=== PATIENT | female | born 1965 | race Caucasian/White ===

== ENCOUNTER 2019-12-27 15:54 | Outpatient (CLI) | payer OTHER, SELFPAY ==
--- NOTE | ~2019-12-27 | XR_ITS ---
EXAMINATION: XR chest 2V EXAM DATE: 12/27/2019 16:20 INDICATION: Cough and shortness of breath. TECHNIQUE: Frontal and lateral projections of the chest obtained and reviewed. There is no prior darien dy for comparison. FINDINGS: There are no acute fractures or dislocations identified. There is no subcutaneous gas. Th e soft tissue is unremarkable. There are no radiopaque foreign bodies. IMPRESSION: No acute osseous findings. Reviewed, dictated and finalized at location A. IMPRESSION: No acute osseous findings.
== END 2019-12-27 15:55 | disposition home or self-care (01) ==
LOC: ANHIMG 15:57
PROVIDERS: Visit Provider Physician Assistant
DX: R05 Cough (principal); R06.02 Shortness of breath
CPT/HCPCS: 71046

== ENCOUNTER → 2020-07-06 17:52 | Outpatient (CLI) | payer OTHER, SELFPAY ==
--- NOTE | ~2020-07-06 | MM_ITS ---
EXAMINATION: MM screening [facility] BI w kristy HISTORY: Screening mammogram TECHNIQUE: Craniocaudal and mediolateral oblique 3-D tomosynthesis images were obtained and synthetic 2-D images were generated. CAD analysis was submitted and interpreted. COMPARISON: 03/12/2019, 12/19/2017, 11/08/2016 BREAST PARENCHYMAL COMPOSITION: The breasts are extremely dense, which lowers the sensitivity of mamm ography. FINDINGS: There is no evidence of suspicious mass, calcification, or architectural distortion to sugg est malignancy in either breast. There has been no suspicious interval change. IMPRESSION: 1. No mammographic evidence of malignancy. 2. Recommend routine screening mammography in one year. BI-RADS Category 1: Negative Reviewed, dictated and finalized at location A. 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
== END ==
PROVIDERS: PCP Family Medicine; Visit Provider Nurse Practitioner Obstetrics & Gynecology
DX: Z12.31 Encounter for screening mammogram for malignant neoplasm of breast (principal)
CPT/HCPCS: 77063; 77067

== ENCOUNTER → 2020-11-13 14:59 | Outpatient (CLI) | payer OTHER, SELFPAY ==
--- NOTE | ~2020-11-13 | XR_ITS ---
EXAMINATION: XR lumbar spine 2-3V DATE: 11/13/2020 15:19 INDICATION: Sciatica, unspecified side. Chronic low back pain. TECHNIQUE: 3 views of lumbar spine were obtained. COMPARISON: None. FINDINGS: There is 4 degrees dextrocurvature of lumbar spine. Vertebral body heights are normal. Ther e is mildly decreased disc height at L4-L5 and moderately decreased disc height at L5-S1. There is mu ltilevel mild facet joint osteoarthritis. IMPRESSION: 1. Moderate lower lumbar spondylosis. Reviewed, dictated and finalized at location A.
--- NOTE | ~2020-11-13 | XR_ITS ---
EXAMINATION: XR_CERV2-3V_CR DATE: 11/13/2020 15:19 INDICATION: Neck pain. Bilateral hand numbness. TECHNIQUE: 5 views of cervical spine were obtained. COMPARISON: None. FINDINGS: There is 8 degrees levocurvature of cervicothoracic spine. Vertebral body heights and inter vertebral disc heights are normal. At C7-T1, there is severe facet joint osteoarthritis. No central c anal stenosis or prevertebral soft tissue swelling. IMPRESSION: 1. Mild cervical spondylosis. Reviewed, dictated and finalized at location A.
== END ==
PROVIDERS: PCP Family Medicine; Visit Provider Family Medicine
DX: M54.12 Radiculopathy, cervical region (principal); M54.30 Sciatica, unspecified side; M47.816 Spondylosis without myelopathy or radiculopathy, lumbar region; M47.812 Spondylosis without myelopathy or radiculopathy, cervical region
CPT/HCPCS: 72040; 72100

== ENCOUNTER → 2021-07-14 08:02 | Outpatient (CLI) | payer OTHER, SELFPAY ==
--- NOTE | ~2021-07-14 | MM_ITS ---
EXAMINATION: MM screening [facility] BI w kristy HISTORY: Screening mammogram TECHNIQUE: Craniocaudal and mediolateral oblique 3-D tomosynthesis images were obtained and synthetic 2-D images were generated. Rotated lateral CC views of both breasts. CAD analysis was submitted and interpreted. COMPARISON: 07/06/2020, 03/12/2019, 12/2017 bilateral screening mammogram examinations BREAST PARENCHYMAL COMPOSITION: The breasts are extremely dense, which lowers the sensitivity of mamm ography. FINDINGS: There is a biopsy marker on the left; history of prior benign left breast biopsy in 2011. T here is no evidence of suspicious mass, calcification, or architectural distortion to suggest maligna ncy in either breast. There has been no suspicious interval change. IMPRESSION: 1. No mammographic evidence of malignancy. 2. Recommend routine screening mammography in one year. BI-RADS Category 1: Negative Reviewed, dictated and finalized at location A. 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
== END ==
PROVIDERS: Visit Provider Nurse Practitioner Obstetrics & Gynecology
DX: Z12.31 Encounter for screening mammogram for malignant neoplasm of breast (principal)
CPT/HCPCS: 77063; 77067

== ENCOUNTER 2021-08-07 08:32 | Emergency (ER) | payer OTHER, SELFPAY ==
[2021-08-07 08:38] VITALS: BP 141/92; PULSE 72; RESP 14; TEMP 36.2; O2SAT 100
--- NOTE | 2021-08-07 09:05 | ED.URI ---
HPI - URI/Sore Throat General Chief Complaint: Upper Respiratory Infection Stated Complaint: headache congestion Time Seen by Provider: 08/07/21 09:05 Source: patient, RN notes reviewed and old records reviewed Mode of arrival: ambulatory Limitations: no limitations History of Present Illness HPI Narrative: 55-year-old female presents to the [facility] with complaints of a headache, sore throat and nasal congestion 10 days. States every year around this time she gets bronchitis/sinusitis. Reports trying to treat it with Claritin-D and ibuprofen with no relief. Reports green discharge nasally. Cough worse in the morning and at night. Denies chest pain or abdominal pain. Denies fevers. No nausea vomiting or diarrhea. Related Data Home Medications Medication Instructions Recorded Confirmed thyroid (pork) [[place] Thyroid] 60 mg PO QAM 08/07/21 08/07/21 Allergies Allergy/AdvReac Type Severity Reaction Status Date / Time azithromycin Allergy Intermediate Hives Verified 08/07/21 09:12 latex Allergy Intermediate Rash Verified 08/07/21 09:12 Review of Systems Review of Systems: All systems reviewed & are unremarkable except as noted in HPI and below Constitutional: Constitutional: Reports no additional constitutional complaints, Denies chills and Denies fever(s) Eyes: Eyes: Reports no additional eye complaints and Denies change in vision ENT: Reports as per HPI, Denies dysphagia, Denies dizziness, Reports headache(s) (Frontal maxillary), Denies hoarseness, Denies lip swelling, Reports nasal congestion, Reports nasal discharge (Green), Reports post nasal drip, Reports sinus pain, Reports sinus pressure, Reports sore throat, Denies throat swelling and Denies tongue swelling Cardiovascular: Cardiovascular: Reports no additional cardiovascular complaints and Denies chest pain Respiratory: Respiratory: Reports no additional respiratory complaints, Denies cough and Denies dyspnea Gastrointestinal: Gastrointestinal: Reports no additional gastrointestinal complaints, Denies abdominal pain, Denies nausea and Denies vomiting Genitourinary: Genitourinary: Reports no additional female genitourinary complaints Musculoskeletal: Musculoskeletal: Reports no additional musculoskeletal complaints Integumentary/Breasts: Skin/Breast: Reports system reviewed and no additional complaints, except as docu Neurologic: Reports system reviewed and no additional complaints, except as documented Psychiatric: Psychiatric: Reports no additional psychiatric complaints Allergic/Immunologic: Allergic/Immunologic: Reports no additional allergic/immunologic complaints PMFSH Past Medical History Medical History (Updated 08/07/21 @ 09:17 by Irma Castillo) ADD (attention deficit disorder) FHx: colon cancer Onychomycosis Thyroid disease Family History Family History Father Family history of cardiovascular disease Carcinoma of colon Sibling Family history of cardiovascular disease Social History Social History Years smoked: 8 Smoking status: Former smoker Tobacco type: cigarettes Second hand tobacco smoke exposure: No Smoking end date: 08/18/96 Alcohol intake: current Substance use: never Substance use type: does not use Gender identity (if verbalized by the patient): Female Comments At the time of my signature, I reviewed and agree with the nursing past medical, surgical, social, and family history. There is no relevant family history pertinent to the patient complaint. Exam Const: General: no acute distress, alert and ill appearing acutely (mild) Nutritional Appearance: well nourished Orientation/consciousness: patient oriented x3 Limitations: no limitations HENMT: Head: normal to inspection Ears: hearing grossly normal bilaterally, external ears normal, TM normal on the left, EAC's normal, mastoids normal and TM abno
== END 2021-08-07 09:20 | disposition home or self-care (01) ==
PROVIDERS: Emergency Provider Nurse Practitioner; PCP Family Medicine
DX: J06.9 Acute upper respiratory infection, unspecified (principal); J01.41 Acute recurrent pansinusitis; Z87.891 Personal history of nicotine dependence; E03.9 Hypothyroidism, unspecified
CPT/HCPCS: 99213; G0463

== ENCOUNTER → 2021-11-27 12:06 | Outpatient (CLI) | payer OTHER, SELFPAY ==
--- NOTE | ~2021-11-27 | DEXA_ITS ---
Bone Density Report Name: CT MAO Age: 56 Sex: Female Ethnicity: White Date of : 1965 Indication: postmenopausal; screening for osteoporosis; Referring Provider: Ryann Pat Study: Bone densitometry was performed. Exam Date: November 27, 2021 Accession number: [id number] Bone Density: Region BMD T-score Z-score Classification AP Spine (L1-L4) 1.027 -0.2 0.9 Normal Femoral Neck (Left) 0.657 -1.7 -0.7 Osteopenia Total Hip (Left) 0.824 -1.0 -0.3 Normal Femoral Neck (Right) 0.671 -1.6 -0.5 Osteopenia Total Hip (Right) 0.811 -1.1 -0.4 Osteopenia Total Hip Mean 0.818 -1.1 -0.4 Osteopenia World Health Organization criteria for BMD impression classify patients as: Normal (T-score at or above -1.0), Osteopenia (T-score between -1.0 and -2.5), or Osteoporosis (T-score at or below -2.5). 10-year Fracture Risk: FRAX not reported because: Treated for osteoporosis Clinical Information Provided by Patient: Is being treated for osteoporosis Has used the following medications: HRT (i.e. estrogen/hormone therapy), Vitamin D Patient maximum height was 62 Menopause Age: 54 Drinks caffeinated beverages Onset of menses at age 15 Number of children 2 Impression: The patient has low bone mass, based on the Left Femoral Neck T-score. Discussion: It is important to ask patients whether they are taking their medications and to encourage continued and appropriate compliance with their osteoporosis therapies to reduce fracture risk. It is also important to review their risk factors and encourage appropriate calcium and vitamin D intakes, exercise, fall prevention and other lifestyle measures. Follow-Up: Consider a repeat BMD and Vertebral Fracture Assessment (VFA) exam in 2 years or sooner if medically necessary, to reassess this patient's status. Reported by: STEFANI on 11/27/2021 12:29:00 PM. Reviewed, dictated and finalized at location APaul PHELAN
== END ==
PROVIDERS: PCP Obstetrics & Gynecology; Visit Provider Advanced Practice Midwife
DX: Z78.0 Asymptomatic menopausal state (principal); M85.852 Other specified disorders of bone density and structure, left thigh; M85.851 Other specified disorders of bone density and structure, right thigh
CPT/HCPCS: 77080

== ENCOUNTER 2022-02-22 01:30 | Day surgery (SDC) | payer OTHER, SELFPAY ==
[2022-02-08 14:11] VITALS: BMI 21.7
--- NOTE | 2022-02-21 14:02 | P.HP_ITS ---
History of Present Illness History of Present Illness Consent: Risks, benefits, and alternatives have been discussed and questions answered. Patient agrees to proceed with procedure. Chief complaint: family hx colon ca, neoplasm screening Narrative: Yissel Ellis is a 56 year old female Referred for colon cancer screening. She has a family history of colon cancer. Review of Systems Review of Systems: All systems reviewed & are unremarkable except as noted in HPI and below PMFSH Past Medical History Medical History ADD (attention deficit disorder) FHx: colon cancer Onychomycosis Thyroid disease Family History Family History Father Family history of cardiovascular disease Carcinoma of colon Sibling Family history of cardiovascular disease Social History Social History Years smoked: 8 Smoking status: Never smoker Tobacco type: cigarettes Second hand tobacco smoke exposure: No Smoking end date: 08/18/96 Alcohol intake: current Drinks per week: 3 Substance use: never Substance use type: does not use Living arrangements: with family Gender identity (if verbalized by the patient): Female Spiritual care concerns: No Meds Home Medications and Allergies Home Medications Medication Instructions Recorded Confirmed Type thyroid (pork) 60 mg tablet 60 mg PO QAM 08/07/21 02/22/22 History ([place] Thyroid) cholecalciferol (vitamin D3) 25 25 mcg PO DAILY 12/18/21 02/22/22 History mcg (1,000 unit) capsule estradiol cypionate 5 mg/mL 1.5 mg IM WEEKLY 12/18/21 02/22/22 History intramuscular oil magnesium glycinate 500 mg PO DAILY 12/18/21 02/22/22 History progesterone micronized 100 mg 100 mg vaginal EVERY OTHER DAY 12/18/21 02/22/22 History vaginal insert spironolactone 25 mg tablet 25 mg PO DAILY 12/18/21 02/22/22 History testosterone cypionate 100 mg/mL 50 mg IM WEEKLY 12/18/21 02/22/22 History intramuscular oil liothyronine 25 mcg tablet 1 tablet PO DAILY 02/08/22 02/22/22 History Allergies Allergy/AdvReac Type Severity Reaction Status Date / Time azithromycin Allergy Intermediate Hives Verified 02/22/22 07:51 latex Allergy Intermediate Rash Verified 02/22/22 07:51 Exam Resp: Auscultation: clear to auscultation bilaterally Cardio: Rate: regular rate Rhythm: regular rhythm GI: GI Palp: Yes Soft to palpation and No Tenderness to palpation present (GI) Assessment and Plan Assessment and plan (1) Colon cancer screening: Code(s): Z12.11 - Encounter for screening for malignant neoplasm of colon Status: Acute Assessment and Plan: Colonoscopy with possible biopsy or polypectomy or cautery or injection of substances.
[2022-02-22 07:40] VITALS: BP 142/76; PULSE 71; RESP 16; TEMP 36.4; O2SAT 100; BMI 20.7
[2022-02-22] MEDS: LACTATED RINGERS 1,000 ML 150 ML IV CONT (08:00)
--- NOTE | 2022-02-22 08:34 | WPDANESEPPF ---
Anes - Initial Pre Proc Eval Procedure: Operation Date: 02/22/22 09:00 Proposed Procedures p Screening Colonoscopy - Silverio Jerome MD Date/Time: 02/22/22 08:34 Surgeon: Silverio Jerome MD Pre Op Diagnosis: family hx colon ca, neoplasm screening Patient Data Age: 56 Gender: F Height: 1.57 m Weight: 51.6 kg Last Vital Signs Temp 97.5 F L 02/22/22 07:40 Pulse 71 02/22/22 07:40 Resp 16 02/22/22 07:40 BP 142/76 H 02/22/22 07:40 Pulse Ox 100 02/22/22 07:40 O2 Del Method Room Air 02/22/22 07:40 Allergies Allergy/AdvReac Type Severity Reaction Status Date / Time azithromycin Allergy Intermediate Hives Verified 02/22/22 07:51 latex Allergy Intermediate Rash Verified 02/22/22 07:51 Home Medications Medication Instructions Recorded Confirmed Type thyroid (pork) 60 mg tablet 60 mg PO QAM 08/07/21 02/22/22 History ([place] Thyroid) cholecalciferol (vitamin D3) 25 25 mcg PO DAILY 12/18/21 02/22/22 History mcg (1,000 unit) capsule estradiol cypionate 5 mg/mL 1.5 mg IM WEEKLY 12/18/21 02/22/22 History intramuscular oil magnesium glycinate 500 mg PO DAILY 12/18/21 02/22/22 History progesterone micronized 100 mg 100 mg vaginal EVERY OTHER DAY 12/18/21 02/22/22 History vaginal insert spironolactone 25 mg tablet 25 mg PO DAILY 12/18/21 02/22/22 History testosterone cypionate 100 mg/mL 50 mg IM WEEKLY 12/18/21 02/22/22 History intramuscular oil liothyronine 25 mcg tablet 1 tablet PO DAILY 02/08/22 02/22/22 History Patient hx anesthesia problems: none Family hx anesthesia problems: none Results Review: All pre-operative results and documents have been reviewed as part of the pre-operative evaluation. COUNT INCLUDES THE [facility] Past Medical History Medical History ADD (attention deficit disorder) FHx: colon cancer Onychomycosis Thyroid disease Family History Family History Father Family history of cardiovascular disease Carcinoma of colon Sibling Family history of cardiovascular disease Social History Social History Years smoked: 8 Smoking status: Never smoker Tobacco type: cigarettes Second hand tobacco smoke exposure: No Smoking end date: 08/18/96 Alcohol intake: current Drinks per week: 3 Substance use: never Substance use type: does not use Living arrangements: with family Gender identity (if verbalized by the patient): Female Spiritual care concerns: No Anes - Eval Final PreProcedure Day of Procedure 02/22/22 08:34 Patient weight: normal Heart: regular rate and rhythm Lungs: clear to auscultation Airway: Mallampati scale class II Neurological: alert and oriented Last oral intake: >/= 8 hours ASA classification: II Emergent: no Anesthetic plan: proceed Anesthesia type and monitoring: general GIVS and standard monitoring Results Review: All pre-operative results and documents have been reviewed as part of the pre-operative evaluation. Informed Consent: The patient's anesthetic plan and its attendant risks and benefits were discussed with the patient/family/POA. Questions were solicited and answers provided to the satisfaction of the patient/family/POA.
[2022-02-22 09:05] VITALS: BP 96/59; PULSE 74; RESP 18; O2SAT 100
[2022-02-22 09:15] VITALS: BP 114/71; PULSE 77; RESP 20; O2SAT 100
[2022-02-22 09:25] VITALS: BP 130/82; PULSE 72; RESP 18; O2SAT 100
== END 2022-02-22 09:42 | disposition home or self-care (01) ==
PROVIDERS: PCP Family Medicine; Visit Provider Internal Medicine Gastroenterology
PROC: 0DJD8ZZ Inspection of Lower Intestinal Tract, Via Natural or Artificial Opening Endoscopic (ICD-10-PCS; CPT 45378; principal; 2022-02-22 09:00)
DX: Z12.11 Encounter for screening for malignant neoplasm of colon (principal); Z80.0 Family history of malignant neoplasm of digestive organs; K64.1 Second degree hemorrhoids; F98.8 Other specified behavioral and emotional disorders with onset usually occurring in childhood and adolescence; E07.9 Disorder of thyroid, unspecified; Z87.891 Personal history of nicotine dependence
CPT/HCPCS: 45378; J2001; J2704; J7120

== ENCOUNTER → 2022-10-25 14:46 | Outpatient (CLI) | payer OTHER, SELFPAY ==
--- NOTE | ~2022-10-25 | MM_ITS ---
EXAMINATION: MM screening [facility] BI w kristy HISTORY: Screening mammogram TECHNIQUE: Craniocaudal and mediolateral oblique 3-D tomosynthesis images were obtained and synthetic 2-D images were generated. CAD analysis was submitted and interpreted. COMPARISON: 07/14/2021, 07/06/2020, 03/12/2019 BREAST PARENCHYMAL COMPOSITION: The breasts are heterogeneously dense, which may obscure small masses . FINDINGS: RIGHT BREAST: There is a possible mass in the posterior third of the upper breast in line with the ni pple axis. LEFT BREAST: No suspicious mass, calcification, or architectural distortion are identified to suggest malignancy. There has been no suspicious interval change. IMPRESSION: 1. Possible right breast mass. 2. Additional mammographic views and possible breast ultrasound are recommended. BI-RADS Category 0: Incomplete: Needs additional imaging evaluation. Reviewed, dictated and finalized at location A. 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 Possible right breast mass. 2. Additional mammographic views and possible breast ultrasound are recommended . BI-RADS Category 0: Incomplete: Needs additional imaging evaluation.
== END ==
PROVIDERS: PCP Family Medicine; Visit Provider Nurse Practitioner Obstetrics & Gynecology
DX: Z12.31 Encounter for screening mammogram for malignant neoplasm of breast (principal); R92.8 Other abnormal and inconclusive findings on diagnostic imaging of breast
CPT/HCPCS: 77063; 77067

== ENCOUNTER → 2022-11-21 08:42 | Outpatient (CLI) | payer OTHER, SELFPAY ==
--- NOTE | ~2022-11-21 | MMUS_ITS ---
EXAMINATION: MM diagnostic alan RT w kristy, US breast RT complete HISTORY: Follow-up right breast mass TECHNIQUE: Additional 3-D tomosynthesis images of the right breast were performed and synthetic 2-D i mages were generated. CAD analysis was submitted and interpreted. High resolution complete right kera st ultrasound was performed. COMPARISON: 10/25/2022 BREAST PARENCHYMAL COMPOSITION: The breasts are extremely dense, which lowers the sensitivity of mamm ography FINDINGS: MAMMOGRAPHIC FINDINGS: There is a focal mass in the subareolar location of the right breast. No suspicious calcifications or architectural distortion. ULTRASOUND: Complete US of all 4 quadrants of the right breast and retroareolar region was reviewed. At 12:00 aline r the areola there is a 6 x 6 x 3 mm heterogeneous predominantly hypoechoic mass with internal vascul arity. No significant posterior features. At 9:00, 4 cm from the nipple there is an oval circumscribe d hypoechoic mass with parallel orientation measuring 10 x 6 x 4 mm. IMPRESSION: 1. Right breast masses located at 12:00 near the areola and 9:00, 4 cm from the nipple. 2. Ultrasound-guided right breast biopsies recommended. BI-RADS category 4, suspicious findings. Reviewed, dictated and finalized at location A. IMPRESSION: 1. Right breast masses located at 12:00 near the areola and 9:00, 4 cm from the nipple. 2. Ultrasound-guided right breast biopsies recommended. BI-RADS category 4, suspicious findings.
== END ==
PROVIDERS: PCP Nurse Practitioner; Visit Provider Nurse Practitioner
DX: N63.11 Unspecified lump in the right breast, upper outer quadrant (principal)
CPT/HCPCS: 76641; 77061; 77065; G0279

== ENCOUNTER 2023-08-21 16:24 | Outpatient (CLI) | payer BC, SELFPAY ==
--- NOTE | ~2023-08-21 | XR_ITS ---
EXAMINATION: XR lumbar spine 2-3V DATE: 08/21/2023 16:41 INDICATION: Dorsalgia, unspecified. TECHNIQUE: 3 views of lumbar spine were obtained. COMPARISON: Lumbar spine radiographs 11/13/2020 FINDINGS: There is 3 degrees levocurvature of lumbar spine. Vertebral body heights are normal. There is severely decreased disc height at L5-S1. There is multilevel mild facet joint osteoarthritis. At L 5-S1, there is severe bilateral facet joint osteoarthritis. IMPRESSION: 1. Severe lower lumbar spondylosis. Reviewed, dictated and finalized at location E. 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
== END 2023-08-21 16:25 | disposition home or self-care (01) ==
LOC: ANHIMG 16:29
PROVIDERS: PCP Family Medicine; Visit Provider Physician Assistant
DX: M43.06 Spondylolysis, lumbar region (principal); G89.29 Other chronic pain
CPT/HCPCS: 72100

== ENCOUNTER 2023-09-17 06:41 | Outpatient (CLI) | payer BC, SELFPAY ==
--- NOTE | ~2023-09-17 | MR_ITS ---
MRI of the lumbar spine Clinical History: Back pain Technique: Axial T2-weighted images, and sagittal T1-weighted, T2-weighted, and T2 fat-sat images wer e acquired. Findings: There is no fracture or subluxation of the lumbar spine. Vertebral bodies maintain normal h eight and alignment. No suspicious bone marrow signal abnormality seen. At L1-L2, there is no disc bulge or herniation. There is mild facet arthropathy. No central canal phil nosis or neural foraminal narrowing. At L2-L3, there is minimal disc bulge with moderate facet arthropathy. No central canal stenosis. The re is mild bilateral neural foraminal narrowing. At L3-L4, there is minimal disc bulge and moderate facet arthropathy. No central canal stenosis. Ther e is mild bilateral neural foraminal narrowing. At L4-L5, there is disc bulge with mild to moderate facet arthropathy. No kev central canal stenosi s. There is moderate left neural foraminal narrowing, and mild to moderate right neural foraminal brenna rowing. At L5-S1, there is moderate degenerative disc narrowing. There is central disc protrusion with modera te facet arthropathy. No central canal stenosis. There is moderate bilateral neural foraminal narrowi ng. Paravertebral soft tissues are unremarkable. Impression: [id number] degenerative spondylosis, as detailed above. Reviewed, dictated and finalized at [facility]. ER TACKER Impression: [id number] degenerative spondylosis, as detailed above.
== END 2023-09-17 06:42 | disposition home or self-care (01) ==
LOC: ANHIMG 06:43
PROVIDERS: PCP Family Medicine; Visit Provider Physician Assistant
DX: M43.06 Spondylolysis, lumbar region (principal); M41.9 Scoliosis, unspecified; M54.30 Sciatica, unspecified side; G89.29 Other chronic pain
CPT/HCPCS: 72148

== ENCOUNTER 2023-11-25 13:10 | Outpatient (CLI) | payer BC, SELFPAY ==
--- NOTE | 2023-11-25 11:00 | NEURO_ITS ---
Impression: # Complains of MTDD
--- NOTE | 2023-11-25 14:00 | NEURO_ITS ---
Impression: # Complains of numbness of lower extremities. Non-diabetic # Normal Nerve Conduction Study. # Normal Needle/EMG exam. # Clinical correlation recommended. Nerve Conduction Studies Anti Sensory Summary Table Stim Site NR Peak (ms) P-T Amp (?V) Site1 Site2 Delta-P (ms) Dist (cm) Nima (m/s) Left Saphenous Anti Sensory (Ant Med Mall) 14cm 3.6 14.5 14cm Ant Med Mall 3.6 0.0 Right Saphenous Anti Sensory (Ant Med Mall) 14cm 3.4 23.1 14cm Ant Med Mall 3.4 0.0 Left Sup Fibular Anti Sensory (Ant Lat Mall) 14 cm 3.4 21.6 14 cm Ant Lat Mall 3.4 16.0 47 Right Sup Fibular Anti Sensory (Ant Lat Mall) 14 cm 3.9 5.7 14 cm Ant Lat Mall 3.9 16.0 41 Left Sural Anti Sensory (Lat Mall) Calf 3.5 15.1 Calf Lat Mall 3.5 16.0 46 Right Sural Anti Sensory (Lat Mall) Calf 3.9 13.7 Calf Lat Mall 3.9 16.0 41 Motor Summary Table Stim Site NR Onset (ms) O-P Amp (mV) Site1 Site2 Delta-0 (ms) Dist (cm) Nima (m/s) Left Peroneal Motor (Vastus Med) Ankle 3.8 2.0 Popit Ankle 7.7 37.0 48 Popit 11.5 1.3 Right Peroneal Motor (Vastus Med) Ankle 3.4 3.6 Popit Ankle 7.8 38.0 49 Popit 11.2 3.4 Left Tibial Motor (Abd Montes De Oca Brev) Ankle 4.1 9.4 Knee Ankle 8.0 38.0 48 Knee 12.1 7.0 Right Tibial Motor (Abd Montes De Oca Brev) Ankle 3.8 7.9 Knee Ankle 8.0 39.0 49 Knee 11.8 6.0 F Wave Studies NR F-Lat (ms) L-R F-Lat (ms) Left Peroneal (Mrkrs) (EDB) 46.49 0.71 Right Peroneal (Mrkrs) (EDB) 45.78 0.71 Left Tibial (Mrkrs) (Abd Hallucis) 46.37 0.24 Right Tibial (Mrkrs) (Abd Hallucis) 46.61 0.24 EMG Side Muscle Nerve Root Ins Act Fibs Amp Dur Recrt Comment Right AntTibialis Dp Br Fibular L4-5 Nml Nml Nml Nml Nml Right Gastroc Tibial S1-2 Nml Nml Nml Nml Nml Right Fibularis Long Sup Br Fibular L5-S1 Nml Nml Nml Nml Nml Right Flex Dig Long Tibial L5-S2 Nml Nml Nml Nml Nml Right Ext Dig Brev Dp Br Fibular L5, S1 Nml Nml Nml Nml Nml Left AntTibialis Dp Br Fibular L4-5 Nml Nml Nml Nml Nml Left Gastroc Tibial S1-2 Nml Nml Nml Nml Nml Left Fibularis Long Sup Br Fibular L5-S1 Nml Nml Nml Nml Nml Left Flex Dig Long Tibial L5-S2 Nml Nml Nml Nml Nml Left Ext Dig Brev Dp Br Fibular L5, S1 Nml Nml Nml Nml Nml Right QuadratusFem QuadFemoris L4-5, S1 Nml Nml Nml Nml Nml Left QuadratusFem QuadFemoris L4-5, S1 Nml Nml Nml Nml Nml MTDD
== END 2023-11-25 13:11 | disposition home or self-care (01) ==
LOC: ANHNEURO 13:14
PROVIDERS: PCP Family Medicine
DX: M54.16 Radiculopathy, lumbar region (principal)
CPT/HCPCS: 95886; 95911

== ENCOUNTER 2024-02-16 15:19 | Outpatient (CLI) | payer BC, SELFPAY ==
--- NOTE | ~2024-02-16 | MM_ITS ---
EXAMINATION: MM screening [facility] BI w kristy HISTORY: Screening mammogram TECHNIQUE: Craniocaudal and mediolateral oblique 3-D tomosynthesis images were obtained and synthetic 2-D images were generated. CAD analysis was submitted and interpreted. COMPARISON: 10/25/2022, 07/14/2021 BREAST PARENCHYMAL COMPOSITION:Dense: The breasts are extremely dense, which lowers the sensitivity o f mammography. FINDINGS: No suspicious mass, calcification, or architectural distortion are identified in either dorys ast to suggest malignancy. There has been no suspicious interval change. IMPRESSION: No mammographic evidence of malignancy. Recommend routine screening mammography in one year. BI-RADS Category 1: Negative Reviewed, dictated and finalized at location M.
== END 2024-02-16 15:20 ==
LOC: MICIMG 15:20
PROVIDERS: PCP Family Medicine; Visit Provider Nurse Practitioner Obstetrics & Gynecology
DX: Z12.31 Encounter for screening mammogram for malignant neoplasm of breast (principal)
CPT/HCPCS: 77063; 77067

== ENCOUNTER 2024-10-24 10:10 | Emergency (ER) | payer BC, SELFPAY ==
--- NOTE | ~2024-10-24 | XR_ITS ---
Left elbow Technique: AP, oblique, and lateral views were obtained. Clinical History: Pain Findings: No acute fracture or dislocation is seen. Osseous alignment is anatomic. Joint spaces are p reserved. There is no displacement of the fat pads, and no evidence of joint effusion. There is soft tissue swelling over the olecranon. Impression: Olecranon bursitis. Reviewed, dictated and finalized at location . Impression: Olecranon bursitis.
--- OUTSIDE RECORDS SUMMARY | 2024-10-24 10:12 | XMS_ITS | Referral Summary ---
Author Organization [facility] Address [address] [place] [id number] Care Team Providers Care Church Musician Name Role Phone Radu Hoskins MD Primary Care Provider Allergies Active Allergy Reactions Criticality Noted Date Comments Azithromycin Hives Medium 12/24/2019 Latex Hives Medium 12/03/2022 Medications biotin 1 mg capsule biotin 1 mg capsule Active calcium carbonate (OS-DANISH) 1,250 mg (500 mg elemental) tablet Calcium 500 500 mg calcium (1,250 mg) tablet Active testosterone cypionate, micro (testosterone cyp, micro, bulk,) 100 % powder 0 09/23/2022 Active Active Problems Problem Noted Date Diagnosed Date Abnormal mammogram 12/03/2022 Mass of breast 11/13/2011 Social History Tobacco Use Types Packs/Day Years Used Date Smoking Tobacco: Former Cigarettes Q uit: 1992 Smokeless Tobacco: Former Tobacco Cessation:Counseling Given: Not Answered Comments Unknown Sex and Gender Information Value Date Recorded Sex Assigned at Not on file 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 Gender Identity Not on file Sexual Orientation Not on file Last Filed Vital Signs Vital Sign Reading Time Taken Comments Blood Pressure 125/81 12/03/2022 10:23 AM CDT Pulse 84 12/03/2022 10:23 AM CDT Temperature 36.9 C (98.4 F) 12/03/2022 10:23 AM CDT Respiratory Rate 18 12/03/2022 10:23 AM CDT Oxygen Saturation 100% 12/03/2022 10:23 AM CDT Inhaled Oxygen Concentration - - Weight 52.6 kg (116 lb) 12/03/2022 10:23 AM CDT Height 156.2 cm (5' 1.5 ) 12/03/2022 10:23 AM CD T Body Mass Index 21.56 12/03/2022 10:23 AM CDT Plan of Treatment Not on file Insurance [place] [id number] [facility] AETNA SIGNATURE Care Teams Church Musician Relationship Specialty Start Date End Date Radu Hoskins MD [address] [facility] [address] [place] [address] PCP - General Family Medicine 12/09/22
--- OUTSIDE RECORDS SUMMARY | 2024-10-24 10:12 | XMS_ITS | Encounter Summary ---
Author Organization [facility] Address [address] [place] [address] Care Team Providers Care Scrap Cutter Name Role Phone Unavailable Primary Care Provider Unavailabl e Reason for Visit * Diagnostic Imaging (Routine) - Closed Specialty Diagnoses / Procedures Referred By Keke t Referred To Contact Procedures Breast Imaging Screening Outside Reference Sunil Meléndez NP Phone: tel: fax: Referral ID Status Reason Start Date Expiration Date Visits Re quested Visits Authorized [id number] Closed 11/29/2022 12/29/2023 1 1 Encounter Details Date Type Department Care Team (Late st Contact Info) Description 03/12/2019 Hospital Encounter [facility] [address] [place] [id number] Social History Tobacco Use Types Packs/Day Years Used Date Smoking Tobacco: Former Cigarettes Q uit: 1992 Smokeless Tobacco: Former Comments Unknown Sex and Gender Information Value Date Recorded Sex Assigned at Not on file 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 There will be no report generated by a [facility] Radiologist. Narrative [facility]_[email or web address] - 11/29/2022 11:32 AM CDT EXAMINATION: Images For Reference Purposes Only us Sunil Meléndez NP IMG MAMMO PROCEDURES Final Result [email or web address] documented in this encounter Visit Diagnoses Not on filedocumented in this encounter
--- OUTSIDE RECORDS SUMMARY | 2024-10-24 10:12 | XMS_ITS | Clinical Summary ---
Author Organization [facility] Address [address] [place] [address] Phone Care Team Providers Care Scrap Cutter Name Role Phone Unavailable Primary Care Provider Unavailabl e Allergies Active Allergy Reactions Criticality Noted Date Comments Azithromycin Hives 12/24/2019 Medications albuterol 108 (90 Base) MCG/ACT Aerosol SolutionIndicat ions:Shortness of breath take 2 Puffs by inhalation every 4 hours as needed for Wheezing or Cough. 1 Inhaler 0 Active Social History Tobacco Use Types Packs/Day Years Used Date Smoking Tobacco: Never Assessed Comments Unknown Sex and Gender Information Value Date Recorded Sex Assigned at Not on file Legal Sex Female 8:36 AM CDT Gender Identity Not on file Sexual Orientation Not on file Plan of Treatment Health Maintenance Due Date Last Done Comments Hepatitis C Virus (HCV) Screening 1966 TdaP Immunization 1966 Hepatitis B Immunization (1 of 3 - 19+ 3-dose series) 1985 Pap Smear 1987 Cervical Cancer Screening (CCS) 1996 HPV/Cotest 1996 Colonoscopy 2011 Colorectal Cancer Screening 2011 Cologuard 2016 Immunochemical Fecal Occult Blood 2016 Mammogram 2016 Pneumococcal Immunization (5 0+ years) (1 of 1 - PCV) 2016 Zoster Immunization (1 of 2) 2016 Influenza Immunization (#1) 2024 SARS-COV-2 Immunization (3 - 2023- season) 2024 01/18/2021, 12/14/2020 Respiratory Syncytial Virus (RSV) Immunization (Adult) (1 - 1-dose 75+ series) 2041 Meningococcal Immunization (ACWY) Aged Out No longer eligible b ased on patient's age to complete this topic Pneumococcal Immunization Combined Aged Out No longer eligible b ased on patient's age to complete this topic Rotavirus Immunization Aged Out No lo nger eligible based on patient's age to complete this topic
--- OUTSIDE RECORDS SUMMARY | 2024-10-24 10:12 | XMS_ITS | Continuity of Care Document ---
Author Organization [facility] Address [address] [place] [address] Phone Care Team Providers Care Film Processor Name Role Phone Joey PT,MPT,ATC, Dank Unavailable Unavai lable Procedures Procedure Date PT Evaluation Moderate Complexity Therapeutic Activities Neuromuscular Re-Ed Therapeutic Exercise Advance Directives Directive Yes / No Effective Date File Name No Information Encounters Encounter Description Practice Location Reason(s) For Visit Diagnoses Date Provider Providers Copied on Encounter [facility], [address], [place], [place], [id number], tel:[phone] [place] No Information Joey [place] , [place], [place]. Referring Provider: Radu Hoskins, [address] [facility], [place], [address]. tel:[phone] Family History Family Member Type Diagnosis Age At Onset No Information Payers Payer name Insurance type Covered alliance party ID Authoriza tidawood(s) [employer] [facility] [id number] Social History Type Description Quantity Date Captured Comments Alcohol Use Details Unknown Caffeine Use Details Unknown Tobacco Use Status Current non-smoker 22 Smoking Status Never smoker Non-Smoking Tobacco Use Details : No Details Available : No Details Available Sex Female Vital Signs Date / Time: Height Weight BMI Pulse Rate Blood Pressure Temperature Respiratory Rate Body Surface Area Head Circumference Head Circ. Percentile Wt./Fredy. Percentile BMI percentile Pulse Ox Inhaled Ox 11:51 AM 62.00 in 57.150 kg (126.00 lbs) 23.0 4 kg/m eter (2) 1.58 meter(2) Chief Complaint And Reason For Visit No Information Reason For Referral Reason For Referral No Information History Of Present Illness Encounter Date Complaint History Of Prese nt Illness No Information Functional Status Date Functional Assessmen t No Information Instructions Date Instruction Additional Infor mation No Information Assessments Type Assessment Date No Information Patient Care Teams Name Effective Dates (start - stop) Status Members No Information
--- OUTSIDE RECORDS SUMMARY | 2024-10-24 10:12 | XMS_ITS | Data Portability ---
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 Patient will come back in a year unless there are new symptoms. [email or web address] Not available 07/07/2020 11:15:20 07/11/2021 07/11/2021 Annual gynecological exam performed. Patient will come back in a year unless there are new symptoms. Suggest Calcium with Vitamin D if not eating in diet. Patient advised to get annual flu shot. Recommend yearly physicals and preform monthly breast exams. Genetic testing is available for patients with family history of cancer. Engage in safe sexual practices, use condoms. Encouraged to have daily exercise. Avoid tobacco and illicit drugs, moderation of alcohol. If BMI greater than 25 dietary consult advised. If you have any questions please call or email. dexa and mammogram order given Not available 07/11/2021 16:25:06 12/18/2023 12/18/2023 Annual gynecological exam performed. Patient will come back in a year unless there are new symptoms. [email or web address] Not available 12/18/2023 17:29:10 Plan of Treatment Reminders Order Date Submit Date Provider Last Modified By Organization Details Last Modified Time Details Appointments None recorded. Lab lh + FSH, serum 2019 020 [email or web address] [facility] ([facility]), [address], [address], [place], [address], 0 09:10:55 CBC w/ auto diff 2019 020 [email or web address] [facility] ([facility]), [address], [place], [address], 0 09:10:55 CMP, serum or plasma 2019 020 [email or web address] [facility] ([facility]), [address], [place], [address], 0 09:10:55 TSH, serum or plasma 2019 020 [email or web address] [facility] ([facility]), [address], [place], [address], 0 09:10:55 testostero ne, free + total, serum 2019 020 [email or web address] [facility] ([facility]), [address], [place], [address], 0 09:10:56 testostero ne, total, serum 2019 020 [email or web address] [facility] ([facility]), [facility] [facility] [facility] [address], [place], [address], 0 09:10:56 Referral None recorded. Procedures None recorded. Surgeries None recorded. Imaging MAMMO, screening, bilateral 2023 024 DIONICIO Not available 4 07:16:29 Medication Orders Imvexxy Starter Pack 4 mcg vaginal insert, dose pack 2019 020 [email or web address] 1 [id number], [address], [place], [place], [id number], 16:17:00 Patient TargetsNo targets recorded. Patient InstructionsNo instructions recorded. Reason for Referral None Reported. Results Created Date Observation Date Name Description Value Unit Range Abnormal Flag Note LastModifiedBy Organization Detail LastModifiedTime 07/11/20 21 07/11/2021 IMAGE GUIDE D PAP AND HPV REGAR DLESS image guided Pap, HPV regardless of Pap result SEE RESULT S BELOW CASE REPOR T: Cytol ogy Gynec ologi avery Repor t Case: [id number] Autho gabino jo-ann Provi josy: Ryann Brooks NP Colle cted: 07/11 1706 Order ing Locat ion: [place] [facility] Recei ayden: 07/12 0033 First Scree n: Nina Gray ret, CT Rescr een: Travis jorge, Alfredo quach, CT Speci men: Scree joi Pap - Image d, Cervi x STATE MENT OF ADEQU ACY: Satis facto ry for evalu ation Trans forma tion zone compo nent absen t The absen ce of an endoc ervic al compo nent was confi rmed by an addit ional scretha ner. FINAL DIAGN OSIS: Negat chris for Intra epith elial Michael brizuela or Lexi calhoun (NIL) . Nerissa holden anoop d by Travis jorge, Alfredo quach, CT on 2020 at 8:02 PM ----- ----- ----- ----- ----- ----- ----- ----- ----- ----- ----- ----- ----- ----- ----- ----- ----- ---- HPV RESUL TS: HPV mRNA E6/E7 : No HPV mRNA Detec barbara NOTE: This high risk HPV mRNA assay detec ts fourt een high- risk HPV types (16, 18, 31, 33, 35, 39, 45, 51, 52, 56, 58, 59, 66, 68) witho ut diffe renti ation . COMME NT: Note: This speci men was revie wed by a Cytot echno logis t and/o r Patho logis t (as indic ated in this repor t) after evalu ation using the Thinp rep Imagi ng Syste m. CLINI AVERY INFOR MATIO N: Menst rual Statu s: LMP (if appli cable ): Clini avery Histo ry/Pr eviou s Pap: Type of Neopl sandy (if appli cable ): Signi fican t Clini avery Findi ngs: Other Histo ry: Hormo gregg (if appli cable ): PAP EDUCA MIAH L NOTE: The Pap Test is a scree joi test with an inher ent false negat chris rate. Liqui d-bas e sampl ing may decre ase, but will not elimi marybel, false negat chris resul ts. A negat chris resul t does not precl ude the prese nce and/o r devel opmen t of disea se, since the prese nce of abnor mal cells in the sampl e depen ds on the locat ion of the lesio n and sampl ing techn ique. Eugenio nued regul ar scree joi is the best metho d of cance r preve ntion . If repor barbara cytol ogic findi ng do not corre late with physi avery and/o r histo rical findi ngs, furth er inves tigat ion is recom rafi d, as clini merari yee nted. Not Available [facility] (Lab) [address], [place], [address], 07/20/2021 21:10:27 12/19/19 22 12/18/2021 CBC W/DIF F WBC 6.9 10'3/ uL 3.6-10 .2 Not Available [facility] (Lab) [address], [place], [address], 12/19/2021 09:32:09 12/19/19 22 12/18/2021 CBC W/DIF F RBC 4.90 10'6/ uL (based on docume nted legal sex) 4.10-5 .30 Not Available [facility] (Lab) [address], [place], [address], 12/19/2021 09:32:09 12/19/19 22 12/18/2021 CBC W/DIF F HGB 14.6 g/dL (based on docume nted legal sex) 11.9-1 5.8 Not Available [facility] (Lab) [address], [place], [address], 12/19/2021 09:32:09 12/19/19 22 12/18/2021 CBC W/DIF F HCT 44.8 % (based on docume nted legal sex) 37.4-4 8.3 Not Available [facility] (Lab) [address], [place], [address], 12/19/2021 09:32:09 12/19/19 22 12/18/2021 CBC W/DIF F MCV 92.0 fL 82.0-9 9.0 Not Available [facility] (Lab) [address], [place], [address], 12/19/2021 09:32:09 12/19/19 22 12/18/2021 CBC W/DIF F MCH 30.0 pg 27.0-3 3.0 Not Available [facility] (Lab) [address], [place], [address], 12/19/2021 09:32:09 12/19/19 22 12/18/2021 CBC W/DIF F MCHC 33.0 g/dL 32.0-3 6.0 Not Available [facility] (Lab) [address], [place], [address], 12/19/2021 09:32:09 12/19/19 22 12/18/2021 CBC W/DIF F RDW 12.0 % 11.0-1 5.0 Not Available [facility] (Lab) [address], [place], [address], 12/19/2021 09:32:09 12/19/19 22 12/18/2021 CBC W/DIF F plt 277 10'3/ uL 150-45 0 Not Available [facility] (Lab) [address], [place], [address], 12/19/2021 09:32:09 12/19/19 22 12/18/2021 CBC W/DIF F MPV 10.3 fL 9.8-12 .7 Not Available [facility] (Lab) [address], [place], [address], 12/19/2021 09:32:09 12/19/19 22 12/18/2021 CBC W/DIF F NRBC's 0.00 % 0 Not Available [facility] (Lab) [address], [place], [address], 12/19/2021 09:32:09 12/19/19 22 12/18/2021 CBC W/DIF F absolute NRBCs 0.0 10'3/ uL 0 Not Available [facility] (Lab) [address], [place], [address], 12/19/2021 09:32:09 12/19/19 22 12/18/2021 CBC W/DIF F neutrophils 62.0 % 37.0-7 2.0 Not Available [facility] (Lab) [address], [place], [address], 12/19/2021 09:32:09 12/19/19 22 12/18/2021 CBC W/DIF F lymphocytes 29.0 % 16.0-4 8.0 Not Available [facility] (Lab) [address], [place], [address], 12/19/2021 09:32:09 12/19/19 22 12/18/2021 CBC W/DIF F monocytes 8.0 % 4.0-14 .0 Not Available [facility] (Lab) [address], [place], [address], 12/19/2021 09:32:09 12/19/19 22 12/18/2021 CBC W/DIF F eosinophils 1.0 % 0.0-9. 0 Not Available [facility] (Lab) [address], [place], [address], 12/19/2021 09:32:09 12/19/19 22 12/18/2021 CBC W/DIF F basophils 0.0 % 0.0-2. 0 Not Available [facility] (Lab) [address] [facility], [place], [address], 12/19/2021 09:32:09 12/19/19 22 12/18/2021 CBC W/DIF F immature granulocytes 0.0 % no define d refere nce range Not Available [facility] (Lab) [address], [place], [address], 12/19/2021 09:32:09 12/19/19 22 12/18/2021 CBC W/DIF F absolute neutrophils 4.2 10'3/ uL 1.1-6. 0 Not Available [facility] (Lab) [address] [facility], [place], [address], 12/19/2021 09:32:09 12/19/19 22 12/18/2021 CBC W/DIF F absolute lymphocytes 2.0 10'3/ uL 0.7-3. 4 Not Available [facility] (Lab) [address] [facility], [place], [address], 12/19/2021 09:32:09 12/19/19 22 12/18/2021 CBC W/DIF F absolute monocytes 0.5 10'3/ uL 0.3-1. 0 Not Available [facility] (Lab) [address] [place], [address], 12/19/2021 09:32:09 12/19/19 22 12/18/2021 CBC W/DIF F absolute eosinophils 0.1 10'3/ uL 0.0-0. 6 Not Available [facility] (Lab) [address] [facility] [address] [facility], [place], [address], 12/19/2021 09:32:09 12/19/19 22 12/18/2021 CBC W/DIF F absolute basophils 0.0 10'3/ uL 0.0-0. 1 Not Available [facility] (Lab) [address] [facility] [address] [facility], [place], [address], 12/19/2021 09:32:09 12/19/19 22 12/18/2021 CBC W/DIF F absolute immature granulocytes 0.00 10'3/ uL 0.00-0 .10 022 3:33 AM: P indic ates parti al resul ts on a panel have been relea sed. Addit ional resul ts will follo w. 3:33 AM: This resul t has been final verif ied. No addit ional or martinez ed resul ts are expec barbara. Not Available [facility] (Lab) [address] [facility], [place], [address], 12/19/2021 09:32:09 12/19/19 22 12/18/2021 PHOSP HORUS phosphorus 4.2 mg/dL 2.5-5. 0 Not Available [facility] (Lab) [address], [place], [address], 12/19/2021 09:32:10 12/19/19 22 12/18/2021 CMP(C OMPRE HENSI VE METAB OLIC PANEL ) sodium 142 mmol/ L 133-14 6 Not Available [facility] (Lab) [address] [facility] [address], [place], [address], 12/19/2021 09:32:11 12/19/19 22 12/18/2021 CMP(C OMPRE HENSI VE METAB OLIC PANEL ) potassium 3.9 mmol/ L 3.5-5. 1 Not Available [facility] (Lab) [address] [place], [address], 12/19/2021 09:32:11 12/19/19 22 12/18/2021 CMP(C OMPRE HENSI VE METAB OLIC PANEL ) chloride 105 mmol/ L 98-107 Not Available [facility] (Lab) [address] [facility], [place], [address], 12/19/2021 09:32:11 12/19/19 22 12/18/2021 CMP(C OMPRE HENSI VE METAB OLIC PANEL ) carbon dioxide 27 mmol/ L 21-31 Not Available [facility] (Lab) [address] [facility], [place], [address], 12/19/2021 09:32:11 12/19/19 22 12/18/2021 CMP(C OMPRE HENSI VE METAB OLIC PANEL ) anion gap 10 mmol/ L 4-13 Not Available [facility] (Lab) [address] [facility] [address], [place], [address], 12/19/2021 09:32:11 12/19/19 22 12/18/2021 CMP(C OMPRE HENSI VE METAB OLIC PANEL ) blood urea nitrogen 20 mg/dL 7-25 Not Available [facility] (Lab) [address] [facility] [address], [place], [address], 12/19/2021 09:32:11 12/19/19 22 12/18/2021 CMP(C OMPRE HENSI VE METAB OLIC PANEL ) creatinine 0.80 mg/dL 0.60-1 .30 Not Available [facility] (Lab) [address] [facility], [place], [address], 12/19/2021 09:32:11 12/19/19 22 12/18/2021 CMP(C OMPRE HENSI VE METAB OLIC PANEL ) egfrcr (CKD-epi 2020) 87 mL/mi n/1.7 3_m2 >=60 Not Available [facility] (Lab) [address] [facility] [address], [place], [address], 12/19/2021 09:32:11 12/19/19 22 12/18/2021 CMP(C OMPRE HENSI VE METAB OLIC PANEL ) calcium 10.1 mg/dL 8.3-10 .5 Not Available [facility] (Lab) [address] [facility], [place], [address], 12/19/2021 09:32:11 12/19/19 22 12/18/2021 CMP(C OMPRE HENSI VE METAB OLIC PANEL ) glucose 85 mg/dL 70-100 Not Available [facility] (Lab) [address], [place], [address], 12/19/2021 09:32:11 12/19/19 22 12/18/2021 CMP(C OMPRE HENSI VE METAB OLIC PANEL ) protein, total 6.7 g/dL 6.4-8. 3 Not Available [facility] (Lab) [address] [facility], [place], [address], 12/19/2021 09:32:11 12/19/19 22 12/18/2021 CMP(C OMPRE HENSI VE METAB OLIC PANEL ) albumin 4.6 g/dL 3.5-5. 0 Not Available [facility] (Lab) [address], [place], [address], 12/19/2021 09:32:11 12/19/19 22 12/18/2021 CMP(C OMPRE HENSI VE METAB OLIC PANEL ) ALT 18 units /L 9-43 Not Available [facility] (Lab) [address] [place], [address], 12/19/2021 09:32:11 12/19/19 22 12/18/2021 CMP(C OMPRE HENSI VE METAB OLIC PANEL ) alkaline phosphatase 56 units /L 34-104 Not Available [facility] (Lab) [address] [place], [address], 12/19/2021 09:32:11 12/19/19 22 12/18/2021 CMP(C OMPRE HENSI VE METAB OLIC PANEL ) AST 19 units /L 13-39 Not Available [facility] (Lab) [address], [place], [address], 12/19/2021 09:32:11 12/19/19 22 12/18/2021 CMP(C OMPRE HENSI VE METAB OLIC PANEL ) bilirubin, total 0.5 mg/dL 0.2-1. 2 Not Available [facility] (Lab) [address] [facility] [address], [place], [address], 12/19/2021 09:32:11 12/19/19 22 12/18/2021 VITAM IN D, 25-OH (TOTA L D2/D3 ) vitamin D, 25-hydroxy, total 93.9 NG/mL 30-80 high NOTE: Defic iency : <20 ng/mL Insuf ficie ncy: 20-29 ng/mL Optim um Level : 30-80 ng/mL Possi ble Toxic ity: >80 ng/mL Most patie nts with toxic ity have level s >150 ng/mL . Not Available [facility] (Lab) [address] [facility] [address] [facility], [place], [address], 12/19/2021 09:32:12 12/19/19 22 12/18/2021 TSH, REFLE X FREE T4 TSH 0.01 uIU/m L 0.30-5 .33 low Not Available [facility] (Lab) [address], [place], [address], 12/19/2021 09:32:13 12/19/19 22 12/18/2021 T4 FREE T4, free 2.29 NG/dL 0.60-1 .40 high Not Available [facility] (Lab) [address], [place], [address], 12/19/2021 09:32:19 07/07/20 20 07/06/2020 MAMMO , gauri tamez, bilat eral No observ ation record ed. [email or web address] [facility] [address] [address], [place], [address], 12/18/2023 18:04:30 07/16/20 21 07/14/2021 MAMMO , scree joi, bilat eral No observ ation record ed. [address] [facility] [address], [place], [address], 12/18/2023 18:04:30 11/28/19 22 11/27/2021 DEXA, axial skele ton + verte bral fract ure asses sment No observ ation record ed. [address] [facility] [address], [place], [address], 12/18/2023 18:04:30 11/28/19 22 11/27/2021 DEXA, axial skele ton + verte bral fract ure asses sment No observ ation record ed. [address], [place], [address], 12/18/2023 18:04:30 10/30/19 23 10/25/2022 MAMMO , scree joi, bilat eral No observ ation record ed. [address] [facility] [address], [place], [address], 12/18/2023 18:04:30 11/23/19 23 11/21/2022 MAMMO , diagn ostic , unila teral No observ ation record ed. [address] [facility] [address], [place], [address], 12/18/2023 18:04:30 01/07/20 23 11/21/2022 US, breas t, unila teral No observ ation record ed. [address] [facility] [address], [place], [address], 12/18/2023 18:04:30 01/07/20 23 11/21/2022 mammo gram, follo w up* No observ ation record ed. [email or web address] [address], [place], [address], 12/18/2023 18:04:30 02/17/2002/16/2024 MAMMO , scree joi, bilat eral No observ ation record ed. DIONICIO [facility] [address], [place], [address], 03/09/2024 04:07:32 Result Notes None recorded. Problems Name Problem SNOMED Code Status Onset Date Resolution Date Notes Provider Name and Address Organization Details Recorded Time Disorder of perineum Completed 201807/11/2021 Condylom a acuminat um;Recor ded Elsewher e: No Locat ion: [facility] S ource: EHR Hand Cell Tuber shanna: N Kirk ce ID: 0001 Ezio lable Time: 09:30:00 AM Jillian briggs [facility] 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 16:18:27 Breast lump [id number] Completed 201307/11/2021 Breast Lump Or Mass;Rec orded Elsewher e: No Locat ion: [facility] S ource: EHR Hand Cell Tuber shanna: N Kirk ce ID: 0001 Ezio lable Time: 03:30:00 PM Jillian briggs [facility] 16:17:44 Pregnanc y test negative [id number] Completed 201307/11/2021 Pregnanc y examinat ion or test, negative result;R ecorded Elsewher e: No Locat ion: Wes almazan [facility] S ource: EHR Hand Cell Tuber shanna: N Practi ce ID: 0001 Ezio lable Time: 11:45:00 AM Jillian briggs [facility] 16:18:[address] Concept Completed 201707/11/2021 Encntr for general adult medical exam w/o abnormal findings ;Recorde d Elsewher e: No [facility] S ource: [facility] shanna: N Practi ce ID: 0001 Ezio lable Time: 08:30:00 AM Jillian briggs, [facility] 16:18:26 Screenin g for malignan t neoplasm of rectum Completed 201307/11/2021 Screenin g for malignan t neoplasm s of the rectum;R ecorded Elsewher e: No Locat ion: [facility] S ource: [facility] shanna: N Varshati ce ID: 0001 Ezio lable Time: 03:30:00 PM Jillian briggs, [facility] 16:18:23 Menopaus e present [id number] Completed 201807/11/2021 Symptoms such as flushing , sleeples sness, headache , lack of concentr ation, associat ed with natural (age-rel ated) menopaus e;Record ed Elsewher e: No Locat ion: [facility]: N Varshati ce ID: 0001 Ezio lable Time: 11:30:00 AM Jillian briggs [facility] 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 1 16:18:29 Removal of intraute rine device Completed 201407/11/2021 REMOVAL OF IUD;Avni rded Elsewher e: No Locat ion: [facility] S ource: EHR Hand Cell Tuber shanna: N Varshati ce ID: 0001 Ezio lable Time: 02:30:00 PM Jillian Rincon [facility], [facility] 1 16:18:20 Amenorrh ea [id number] Completed 201407/11/2021 Amenorrh ea;Recor ded Elsewher e: No Locat ion: [facility]: N Varshati ce ID: 0001 Ezio lable Time: 08:30:00 AM Jillian Rincon [facility], [facility] 1 16:17:24 Finding of menstrua l bleeding Completed 201607/11/2021 Excessiv e and frequent menstrua tion with regular cycle;Re corded Elsewher e: No Locat ion: [facility] S ource: EHR Hand Cell Tuber shanna: N Varshati ce ID: 0001 Ezio lable Time: 03:30:00 PM Jillian Rincon [facility] 1 16:17:46 Mammogra phy abnormal [id number] Completed 201407/11/2021 Unspecif ied abnormal mammogra m;Record ed Elsewher e: No Locat ion: [facility] S ource: EHR Hand Cell Tuber shanna: N Varshati ce ID: 0001 Ezio lable Time: 04:21:15 PM Jillian Rincon [facility] 1 16:18:10 Speciali zed medical examinat ion Completed 201407/11/2021 Other specifie d chlamydi al diseases ;Recorde d Elsewher e: No Locat ion: [facility] S ource: EHR Hand Cell Tuber shanna: N Kirk ce ID: 0001 Ezio lable Time: 08:30:00 AM Jillian briggs, [facility] 16:18:30 Menstrua tion finding Completed 201407/11/2021 Excessiv e or frequent menstrua tion;Rec orded Elsewher e: No Locat ion: [facility] S ource: [facility] shanna: N Varshati ce ID: 0001 Ezio lable Time: 04:00:00 PM Jillian briggs [facility] 16:18:14 Screenin g for malignan t neoplasm of cervix Completed 201307/11/2021 Screenin g for malignan t neoplasm s of the cervix;R ecorded Elsewher e: No Locat ion: [facility] S ource: [facility] shanna: N Varshajenni ce ID: 0001 Ezio lable Time: 03:30:00 PM [facility] 16:18:22 Urinary tract infectio us disease [id number] Completed 201307/11/2021 UTI;Avni rded Elsewher e: No Locat ion: [facility] S ource: [facility] shanna: Deep Bradley ce ID: 0001 Ezio lable Time: 11:00:00 AM Jillian briggs [facility] 16:18:34 Leukocyt osis [id number] Completed 201307/11/2021 LEUKOCYT OSIS NOS;Avni rded Elsewher e: No Locat ion: [facility] S ource: [facility] shanna: Deep Maddoxti ce ID: 0001 Ezio lable Time: 11:00:00 AM Jillian briggs [facility] 16:18:07 Syphilis test finding [id number] Completed 201607/11/2021 Encntr screen for infectio ns w sexl mode of transmis s;Record ed Elsewher e: No [facility] Tuber shanna: N Practi ce ID: 0001 Ezio lable Time: 08:30:00 AM Jillian briggs [facility] 1 16:18:32 Uses IUD (intraut erine device) contrace ption [id number] Completed 201307/11/2021 Surveill ance of IUD;Avni rded Elsewher e: No Locat ion: [facility] S ource: EHR Hand Cell Tuber shanna: N Practi ce ID: 0001 Ezio lable Time: 08:45:00 AM Jillian briggs, [facility] 1 16:18:05 Infectio n screenin g Completed 201607/11/2021 Encounte r for screenin g for oth infec/pa rastc diseases ;Recorde d Elsewher e: No Locat ion: [facility]: N Practi ce ID: 0001 Ezio lable Time: 08:30:00 AM Jillian briggs [facility] 16:18:01 Venereal disease screenin g Completed 201407/11/2021 Screenin g examinat ion for venereal disease; Recorded Elsewher e: No [facility] E[facility] Hand Cell Tuber shanna: N Practi ce ID: 0001 Ezio lable Time: 08:30:00 AM Jillian briggs [facility] 1 16:18:35 Insertio n of intraute rine contrace ptive device Completed 201307/11/2021 INSERTIO N OF IUD;Avni rded Elsewher e: No [facility]: EHR Hand Cell Tuber shanna: N Practi ce ID: [id number] Ezio lable Time: 11:45:00 AM Jillian briggs [facility] 16:18:03 Malaise and fatigue [id number] Completed 201407/11/2021 Fatigue; Recorded Elsewher e: No Locat ion: [facility] S ource: EHR Hand Cell Tuber shanna: N Varshati ce ID: [id number] Ezio lable Time: 04:00:00 PM Jillian briggs [facility] 16:18:08 Neoplast ic disease [id number] Completed 201807/11/2021 Neoplasm of unsp behavior of bone, soft tissue, and skin;Rec orded Elsewher e: No [facility]at ion: [facility] N Varshati ce ID: [id number] Ezio lable Time: 11:30:00 AM Jillian briggs [facility] 16:18:16 Problem Notes None recorded. Procedures Surgical History Date Name Laterality Status Provider Name and Address Organization Details Recorded Time 11/22/19 23 Date of Last Mammogram completed Adwoa Herndon [facility] 12/18/2023 17:37:47 07/11/20 21 Date of Last Pap Smear completed Jillian Rincon [facility] 07/11/2021 16:18:40 08/01/20 17 Colposcopy completed Jillian Rincon [facility] 07/11/2021 18:23:13 08/01/20 17 Colposcopy completed Jillian Rincon [facility] 07/11/2021 19:58:59 07/18/20 17 Hysteroscopy completed Jillian Rincon [facility] 07/11/2021 18:30:04 04/21/19 87 section completed Jillianzohra Rincon [facility] 07/11/2021 18:28:29 Imaging Results Imaging Date Name Status LastModified by Organiz ation Details LastModified Time 07/06/2020 MAMMO, screening, bilateral active [email or web address] [facility] [address], [place], [address], 12/18/2023 18:04:30 07/14/2021 MAMMO, screening, bilateral active [email or web address] [facility] [address], [place], [address], 12/18/2023 18:04:30 11/27/2021 DEXA, axial skeleton + vertebral fracture assessment completed [email or web address] [facility] [address] [facility] [address], [place], [address], 12/18/2023 18:04:30 11/27/2021 DEXA, axial skeleton + vertebral fracture assessment completed [address] [facility] [address], [place], [address], 12/18/2023 18:04:30 10/25/2022 MAMMO, screening, bilateral completed [email or web address] [facility] [address], [place], [address], 12/18/2023 18:04:30 11/21/2022 MAMMO, diagnostic, unilateral completed [email or web address] [facility] [address] [facility] [address], [place], [address], 12/18/2023 18:04:30 11/21/2022 US, breast, unilateral completed [email or web address] [facility] [address] [facility] [address], [place], [address], 12/18/2023 18:04:30 11/21/2022 mammogram, follow up* completed [email or web address] [facility] [address] [facility] [address], [place], [address], 12/18/2023 18:04:30 02/16/2024 MAMMO, screening, bilateral active [facility] [address], [place], [address], 03/09/2024 04:07:32 Procedure Notes None recorded. Medical Equipment None Reported. Allergies Allergen ID Allergen Name Allergen Category Reaction Reaction Severity Criticality Documentation Date Start Date Code Code System Note Provider Name and Address Organization Details Recorded Time 92621 latex environme nt,medica tion Not available Not available Not available 08/04/2020 38909 91 RxNorm React ion: Pruri tic rash; Comme nt: Locat [facility]: [facility]; Not Available [facility] 0 14:14:50 46089 azithromy lopez medicatio n Not available Not available Not available 08/04/2020 28657 RxNorm Comme nt: Locat [facility]: [facility] Cau sativ e Agent : Zithr omax; Not Available [facility] 0 14:14:50 Medications Name Sig Start Date Stop Date Status Note LastModified by Organization Details LastModified Time Prometriu m 200 mg capsule take 1 capsule by oral route every day for 12 day at bedtime. 03/03 completed Prescrib ed Elsewher e: No Locat ion: [facility] odify By: cade canseco DateTime : 02/23/20 05:48:11 PM Not Available Not Available Not Available [place] Thyroid 60 mg tablet TAKE 1 TABLET BY MOUTH EVERY MORNING WITHOUT FOOD active Not Available Not Available No t Available anastrozo le 1 mg tablet TK 1/2 T PO TWICE WEEKLY 12/17 completed Not Available Not Available Not Available Adderall 5 mg tablet take 1 tablet by oral route 2 times every day before breakfas t and at noon 07/11 completed Prescrib ed Elsewher e: Yes Loca tion: [facility] odify By: aislinn canseco DateTime : 06/13/20 03:30:00 PM Not Available Not Available Not Available Provera 5 mg tablet take 1 tablet by oral route every day 07/11 completed Prescrib ed Elsewher e: No Locat ion: [facility] odify By: lam rico Encou nter DateTime : 05/17/20 19 11:30:00 AM Not Available Not Available Not Available tramadol 50 mg tablet TAKE 1 TABLET BY MOUTH EVERY 8 HOURS NEEDED FOR PAIN 12/17 completed Not Available Not Available Not Available Celebrex 200 mg capsule take 200mg PO the night before and 400mg PO morning of procedur e 08/08 completed Prescrib ed Elsewher e: No Locat ion: [facility] odify By: aislinn Almazan ncounter DateTime : 07/25/20 17 07:32:17 AM Not Available Not Available Not Available meloxicam 7.5 mg tablet TAKE 1 TABLET BY MOUTH ONCE DAILY active Not Available Not Available No t Available estradiol 1 mg tablet take 1 tablet by oral route every day 07/11 completed Prescrib ed Elsewher e: No Locat ion: [facility] odify By: lam Tony nter DateTime : 05/17/20 19 11:30:00 AM Not Available Not Available Not Available benzonata te 100 mg capsule TAKE 1 TO 2 CAPSULES BY MOUTH EVERY 8 HOURS NEEDED FOR COUGH 12/17 completed Not Available Not Available Not Available [place] Thyroid 30 mg tablet TAKE 1 TABLET BY MOUTH EVERY AFTERNOO N 07/11 completed Not Available Not Available Not Available gabapenti n 100 mg capsule TAKE 1 CAPSULE BY MOUTH AT BEDTIME active Not Available Not Available No t Available diazepam 10 mg tablet take 10mg P 1 hour before the procedur e 08/08 completed Prescrib ed Elsewher e: No [facility] By: aislinn Almazan ncounter DateTime : 07/25/20 17 07:32:17 AM Not Available Not Available Not Available methylpre dnisolone 4 mg tablets in a dose pack TAKE BY MOUTH DIRECTED ON INSIDE OF PACKAGE 12/17 completed Not Available Not Available Not Available [place] 5 mg-325 mg tablet take 2 tablets PO 2 hours before the procedur e 08/08 completed Prescrib ed Elsewher e: No [facility] By: aislinn canseco DateTime : 07/25/20 17 07:32:17 AM Not Available Not Available Not Available amoxicill in 875 mg-potass ium clavulana te 125 mg tablet TAKE 1 TABLET BY MOUTH TWICE DAILY 07/11 completed Not Available Not Available Not Available Ventolin HFA 90 mcg/actua tion aerosol inhaler INHALE 2 PUFFS BY MOUTH EVERY 4 HOURS NEEDED FOR WHEEZING OR COUGH 12/17 completed Not Available Not Available Not Available Bactrim DS 800 mg-160 mg tablet take 1 tablet by oral route every 12 hours 11/29 completed Prescrib ed Elsewher e: No Locat ion: [facility] odify By: aislinn gayleana DateTime : 07/12/20 14 11:00:00 AM Not Available Not Available Not Available Estrogeni c Substance 5 mg/mL intramusc ular suspensio n Inject by intramus cular route. active Not Available Not Available No t Available Calcium-5 00 500 mg (as calcium carbonate 1,250 mg) tablet active Prescrib ed Elsewher e: Yes Loca tion: [facility] odify By: aislinn canseco DateTime : 11/30/19 15 04:00:00 PM Not Available Not Available Not Available Evening Filley 500 mg capsule 12/17 completed Prescrib ed Elsewher e: Yes Loca tion: [facility] odify By: aislinn canseco DateTime : 11/30/19 15 04:00:00 PM Not Available Not Available Not Available Taylor 0.35 mg tablet take 1 tablet by oral route every day 11/29 completed Prescrib ed Elsewher e: No [facility] By: aislinn gayleana DateTime : 06/28/20 14 08:45:00 AM Not Available Not Available Not Available Premarin 0.625 mg/gram vaginal cream 0.5mg PV nightly for 2 weeks and then twice a week for maintena nce 07/11 completed Not Available Not Available Not Available testoster one active Not Available Not Available Not Available progester one active Not Available Not Available Not Available hydrochlo rothiazid e 12.5 mg tablet TAKE 1 TABLET BY MOUTH ONCE DAILY NEEDED FOR EDEMA OR SWELLING . 07/11 completed Not Available Not Available Not Available Women's Daily Multivita min 18 mg-0.4 mg tablet active Prescrib ed Elsewher e: Yes Loca tion: [facility] odify By: anais hodges DateTime : 01/27/20 14 03:30:00 PM Not Available Not Available Not Available biotin 1 mg capsule active Prescrib ed Elsewher e: Yes Loca tion: [facility] odify By: aislinn gayleunter DateTime : 11/30/19 15 04:00:00 PM Not Available Not Available Not Available Imvexxy Starter Pack 4 mcg vaginal insert, dose pack INSERT 1 VAGINAL INSERT (4 MCG) BY VAGINAL ROUTE ONCE DAILY FOR 2 WEEKS THEN 1 INSERT (4 MCG) TWICE WEEKLY FOR DURATION OF USE 07/11 completed Not Available Not Available Not Available Imvexxy Maintenan ce Pack 4 mcg vaginal insert INSERT BY VAGINAL ROUTE ONCE DAILY FOR 2 WEEKS THEN INSERT TWICE WEEKLY FOR DURATION OF USE 07/11 completed Not Available Not Available Not Available Vitals Date Recorded Body height Body mass index (BMI) Body weight Systolic blood pressure Diastolic blood pressure Provider Name and Address Organization Details Last Updated DateTime 07/11/2021 155.58 cm 23.4 kg/m2 11733.05 g 133 mm[Hg] 85 mm[Hg] Jillian Rincon [facility] 16:16:12 Date Recorded Body height Body mass index (BMI) Body weight Provider Name and Address Organization Details Last Updated DateTime 12/18/2023 155.58 cm 22.3 kg/m2 72937.49 g Adwoa Herndon [facility] 12/18/2023 17:32:51 Date Recorded Systolic blood pressure Diastolic blood pressure Provider Name and Address Organization Details Last Updated DateTime 12/18/2023 122 mm[Hg] 80 mm[Hg] Odette Espana, [facility] [address], [place], [address], [facility] 12/18/2023 18:04:28 Date Recorded Body height Body mass index (BMI) Body weight Systolic blood pressure Diastolic blood pressure Provider Name and Address Organization Details Last Updated DateTime 07/07/2020 157.48 cm 23.4 kg/m2 68684.82 g 129 mm[Hg] 82 mm[Hg] Rika Russell [facility] 11:23:35 Social History Question Answer Notes LastModified by Organizat ion Details LastModified Time Tobacco Smoking Status Former Smoker Jillian Mckenzie briggs [facility] 07/11/2021 18:27:57 What Is Your Level Of Alcohol Consumption? Occasional [email or web address] Information not available 07/11/2021 Are You Blind Or Do You Have Difficulty Seeing? No [email or web address] Information not available 07/11/2021 What Is Your Level Of Caffeine Consumption? Occasional [email or web address] Information not available 07/11/2021 In The 14 Days Before Symptom Onset, Have You Had Close Contact With A Laboratory-confir med COVID-19 While That Case Was Ill? No [email or web address] Information not available 07/11/2021 In The 14 Days Before Symptom Onset, Have You Had Close Contact With A Person Who Is Under Investigation For COVID-19 While That Person Was Ill? No [email or web address] Information not available 07/11/2021 Have You Been To An Area Known To Be High Risk For COVID-19? No [email or web address] Information not available 07/11/2021 Are You Deaf Or Do You Have Serious Difficulty Hearing? No [email or web address] Information not available 07/11/2021 What Type Of Diet Are You Following? REGULAR [email or web address] Information not available 07/11/2021 Have You Ever Been Counseled For Unhealthy Alcohol Use? No Information not available 07/11/2021 Do You Use Your Seat Belt Or Car Seat Routinely? Yes [email or web address] Information not available 07/11/2021 Do You Have Smoke And Carbon Monoxide Detectors In Your Home? Yes [email or web address] Information not available 07/11/2021 Do You Feel Stressed (tense, Restless, Nervous, Or Anxious, Or Unable To Sleep At Night)? [id number] Information not available 07/11/2021 Do You Use Any Illicit Or Recreational Drugs? No [email or web address] Information not available 07/11/2021 Do You Use Sunscreen Routinely? Yes [email or web address] Information not available 07/11/2021 Has Tobacco Cessation Counseling Been Provided? No [email or web address] Information not available 07/11/2021 Do You Or Have You Ever Used Any Other Forms Of Tobacco Or Nicotine? No [email or web address] Information not available 07/11/2021 Sex: Unknown Functional Status Question Answer Note LastModified by Organizat ion Details LastModified Time Are you able to walk? YESWOREST [email or web address] Information not available 07/11/2021 What is your exercise level? Occasional [email or web address] Information not available 07/11/2021 Mental Status None recorded. Family History Relationship Description Onset Age of this Age Resolved Age Notes LastModified by Organization Details LastModified Time Father Heart disease Not available 07/11 18:26:38 Father Congestive heart failure Not available 07/11 18:27:00 Father Diabetes mellitus [email or web address] Not available 07/11 18:27:08 Father Malignant tumor of colon 63 [email or web address] Not available 07/11 19:50:23 Brother Heart disease [email or web address] Not available 07/11 18:26:38 Brother Congestive heart failure [email or web address] Not available 07/11 18:27:00 Medical History Condition Response Allergies (Food, seasonal, environmental ) N Other N Breast Cancer N Drug/Latex Allergies/Reactions Y Blood Transfusion N Dermatologic Disorders N Lung Disease N Defects or Inherited Disease N Breast Problem Y Gestational Diabetes N Hematologic disorders N Anesthesia Complications N History of STI N Deep Vein Thrombosis N Polycystic ovary syndrome N Anxiety Disorder Y Autoimmune disease N Arthritis Y Infertility N Polyps N Acid Reflux (GERD) N History of abnormal pap N Cancer N Stroke N Varicosities N Neurologic/Epilepsy N Endometriosis N High Cholesterol N Headaches N Fibromyalgia N Kidney Disease N Heart Problems N Kidney or Bladder Problems N Thyroid Problems N GI Problems N Eating Disorder N Anemia N Art (IVF or FET) N Psychiatric Illness N Ovarian Cancer N Diabetes N Pulmonary (TB, Asthma) N Hepatitis/Liver Disease N No Past Medical History N Eczema N Urinary Tract Infection N Abuse/Domestic Violence N Asthma Y Trauma/Violence N Depression/ depression N Heart Disease N Pre-Eclampsia N Hypertension N Osteoporosis N Thrombophilias N Gynecological History Statement/Question Response Abnormal Pap N Date of Last Mammogram 11/21/2022 Date of LMP 08/18/2019 STIs/STDs N HPV Vaccine N Colposcopy 08/01/2017 Current Control Method Menopause If Post Menopausal, Age at Menopause 52 Sexually Active? Y Menses Monthly N Date of Last Pap Smear 07/11/2021 Sexual Problems? N LMP Approximate Obstetrics History GPAL:G 2 P 2 0 0 2 Type Value Full Term 2 Living 2 Total 2 Past Encounters Encounter ID Performer Location Encounter Start Date Encounter Closed Date Diagnosis/Indication Diagnosis SNOMED-CT Code Diagnosis ICD10 Code Diagnosis Note [id number] Odette Espana [facility] [address] [address] 07/07/2020 11:09:29 07/07/2020 14:28:30 Gynecologic examination 67111697 Z01.419 Take Calcium with Vitamin D 12-1500mg daily. Do monthly self breast exams. It is advised to get annual flu shot in the fall and she could obtain at [facility] or [facility] care clinic. If you haven't received the Tdap vaccine in the last 10 years you should obtain one as well. Have mammogram yearly, bone density every 2-3 years and colonoscop y every 5-10 years depending on findings and history. Engage in daily exercise of low impact aerobic exercise 45-60 minutes 4-5 times weekly. Avoid tobacco and illicit drugs as well as using moderation with alcohol intake less than 1-2 8 oz beverages daily. This lifestyle behavior pattern will lead to less health conditions and longer life span. If BMI greater than 25 weight watchers or dietary consult advised. Questions have been answered. Patient appears to understand instructio ns, but if you have any further questions call or respond to this email -Pap and HPV done today -Patient has not had a menstrual cycle for 1.5 years, likely postmenopa usal -Sexually active with steady partner -RTC in 1 year or PRN Menopausal syndrome 1237 80451 N95.1 -Patient states she has been experienci ng hot flashes, night sweats, vaginal dryness, and weight gain for the past year -Patient has been getting testostero ne pellets from outside provider, she states she is a few weeks from needing a new pellet, she does not wish to continue this therapy -Encourage d patient to come back in a few weeks when her current pellet is , labs will be done at that time -Once labs are complete patient, if patient desires further HRT therapy we will discuss at that time. Also offered contact informatio n for menopause/ sexual health specialist Dr. Kristina Zuniga @ [facility] who offers a free 15mins consultati on as well. RTO x 2wks for labs & HRT discussion . We discussed Menopausal Hormone therapy (MHT) for women with intact uterus with the goals of reliving vaso-motor sx's using estrogen/p rogestin therapy (EPT) using lowest doses for shortest duration in women 40-59yo. Contraindi cations include:Hx of DVT orthrombol icevents, High cholestero l,Hxof breast cancer, known CHD, active liver disease, unexplaine d vag bleeding, high risk endometria l cancer, TIA. Side effects can include but are not limited to: Irregular vag bleeding,, breast tenderness , nausea, weight changes, libido changes, nausea. Adverse Rxn: Elevated BP migraine w/ visual changes, breast cancer dx, VT/stroke, DVT/PE, Endometria l cancer. Please contact office with any new or worsening side effects or adverse reactions. Or if a medical emergency please go to nearest ED/[facility] for further evaluation . Dyspareunia [id number] N94 .10 -Patient desires vaginal estrogen to help with dryness -Imvexxy prescripti on sent to patient pharmacy -RTC in 3 months to assess how this is going Counseled on medication R/B's, Most common side effects, & use. All questions were answered to patient satisfacti on. Call if not covered by insurance at reasonable [place]. [id number] Ryann Pat CNM [place] [address] [address] 07/11/2021 15:52:59 07/11/2021 16:33:22 Gynecologic examination [id number] Z01.419 [id number] [facility] [address] [address] 12/18/2023 17:26:09 12/18/2023 18:35:52 Gynecologic examination [id number] Z01.419 Take Calcium with Vitamin D 12-1500mg daily. Do monthly self breast exams. It is advised to get annual flu shot in the fall and she could obtain at [facility] or [facility]. If you haven't received the Tdap vaccine in the last 10 years you should obtain one as well. Have mammogram yearly, bone density every 2-3 years and colonoscop y every 5-10 years depending on findings and history. Engage in daily exercise of low impact aerobic exercise 45-60 minutes 4-5 times weekly. Avoid tobacco and illicit drugs as well as using moderation with alcohol intake less than 1-2 8 oz beverages daily. This lifestyle behavior pattern will lead to less health conditions and longer life span. If BMI greater than 25 weight watchers or dietary consult advised. Questions have been answered. Patient appears to understand instructio ns, but if you have any further questions call or respond to this email Pap/hpv sentSTD Screen declinedGe netic Screen discussedC olon Screen UTD PCPDexa Screen naRoutine Labs UTD PCPHRT care provided elsewhere. Screening mammography 24 [id number] Z12.31 Health Concerns Section Related Observation LastModified by Organization Detai ls LastModified Time None Recorded Concern Status LastModified by Organization Details LastModified Time None Recorded Advance Directives Directive None Recorded Payers Encounter Date Sequence Insurance Name Policy Number Policy Kumar Covered Member ID Kumar Member ID Guarantor Name 07/07/2020 1 [employer] Crispin Ellis [id number] 07/11/2021 1 [employer] Crispin Ellis [id number] 12/18/2023 1 [place] [id number] Crispin Ellis [id number] Notes Date Note Type Note Provider Name and Address Organization Details Recorded Time 07/07/2020 text/html Annual GYNReport ed bypatient.Menstrua l cycle:Patient has not had a menstrual period for 1.5 years Urinary symptoms:No hematuria; No incontinence Vulva:No genital lesion Vagina:Vaginal dryness Breast:No breast pain; No breast lump; No nipple discharge Current Contraception:[place] gamous relationship Sexual complaints:Sexual complaints;Pain during intercourse;Decrea sed libido Menopausal Symptoms:Hot flashes;Inadequacy of lubrication of vaginal mucosa;Insomnia due to night sweats Psychological symptoms:No depression; No anxiety; No PMDD Preventive measures:Encourage self breast examination; Encourage regular exercise; Encourage no tobacco use; Encourage regular mammograms starting age 40 Odette Espana [facility] [address], [place], [address], [facility] 07/07/2020 13:04:26 07/11/2021 text/html Annual GYNReport ed bypatient.Breast:N o breast pain; No breast lump; No nipple discharge Sexual complaints:No sexual complaints; No pain during intercourse; Normal libido Menopausal Symptoms:No menopausal symptoms; Normal vaginal lubrication Psychological symptoms:No depression; No anxiety; No PMDD Preventive measures:Encourage self breast examination; Encourage regular exercise; Encourage no tobacco use; Encourage regular mammograms starting age 40Notes:no cycle x 1.5 years, taking BHRT from telehealth estrogen, prog and testosterone, no major health issues except new dx of osteoarthritis, had not had dexa LUIS Gutierrez [address], [place], [address], [facility] 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 Post-MenopausalRep orted bypatient.Menopaus al Symptoms:no menopausal symptoms; normal vaginal lubrication Vaginal Bleeding:history of menopause having occurred; no history of post menopausal bleeding Urinary Symptoms:no hematuria; no incontinence; no nocturia; no urinary frequency Vulva:no genital lesion; no vulvar atrophy Vagina:normal vaginal discharge; no vaginal atrophy Breast:no breast lump; no nipple discharge; no breast pain Sexual Complaints:no sexual complaints Psychological Symptoms:no depression; no anxiety Preventive Measures:encourage regular mammograms starting age 40; encourage self breast examination; encourage regular exercise; encourage no tobacco use; needs to schedule mammogram; history of recent colonoscopy Odette Espana [facility] [address], [place], [address], [facility] 12/18/2023 18:06:56 OBGyn Episode Ob Episode Information Episode Created Date Number of Fetuses Patient Bloodtype Patient rh Status Prepregnancy Weight lbs Domestic Partner Domestic Partner Phone Father Name Automation Analyst Status 07/11/20 21 1 CLOSED Fetus Data First Name Last Name Admitted to NICU Weight (g) Sex Living Outcome Pediatric Complications Fetus ID Race Codes Race Delivery Type 4309.12 4 M Full Term [id number] Vaginal Delivery Alex Calculation Initial Alex Date Initial Exam Date Initial Exam Provider Initial Ultrasound Date Last Menstrual Period Date Ultra Sound Weeks Gestation 0 Eighteen To Twenty Week Alex Update Ultra Sound Date Fundal Height At Umbil Quickening Date Ultra Sound Latest Weeks Gestation Final Alex Confirmed By Final Alex Confirmed Date Final Alex Date Ultra Sound Latest Days Gestation 0 0 Menstrual History Last Menstrual Date Menses Monthly On Bcp Conception Prior Menses Frequency Hcg Plus Date Menarche Onset Age Delivery Information Delivery Date Delivery Type Labor Anesthesia Weeks Gestation Incision Type Labor Labor Length Hrs Delivered By Post Complications Tubal Sterilization Discharge Date Comments 8 40 Discharge Information Feeding Method Contraceptive Method Maternal HG B and HCT Levels Ob Episode Information Episode Created Date Number of Fetuses Patient Bloodtype Patient rh Status Prepregnancy Weight lbs Domestic Partner Domestic Partner Phone Father Name Automation Analyst Status 07/11/20 21 1 CLOSED Fetus Data First Name Last Name Admitted to NICU Weight (g) Sex Living Outcome Pediatric Complications Fetus ID Race Codes Race Delivery Type 3345.24 1 F Full Term [id number] Primary Alex Calculation Initial Alex Date Initial Exam Date Initial Exam Provider Initial Ultrasound Date Last Menstrual Period Date Ultra Sound Weeks Gestation 0 Eighteen To Twenty Week Alex Update Ultra Sound Date Fundal Height At Umbil Quickening Date Ultra Sound Latest Weeks Gestation Final Alex Confirmed By Final Alex Confirmed Date Final Alex Date Ultra Sound Latest Days Gestation 0 0 Menstrual History Last Menstrual Date Menses Monthly On Bcp Conception Prior Menses Frequency Hcg Plus Date Menarche Onset Age Delivery Information Delivery Date Delivery Type Labor Anesthesia Weeks Gestation Incision Type Labor Labor Length Hrs Delivered By Post Complications Tubal Sterilization Discharge Date Comments 7 40 Discharge Information Feeding Method Contraceptive Method Maternal HG B and HCT Levels
--- OUTSIDE RECORDS SUMMARY | 2024-10-24 10:12 | XMS_ITS | Encounter Summary ---
Author Organization [facility] Healthcare Address [address] [place] [address] Care Team Providers Care Blow Down Helper Name Role Phone Unavailable Primary Care Provider Unavailabl e Reason for Visit * Diagnostic Imaging (Routine) - Closed Specialty Diagnoses / Procedures Referred By Keke t Referred To Contact Procedures Breast Imaging Screening Outside Reference Sunil Meléndez NP Phone: tel: fax: Referral ID Status Reason Start Date Expiration Date Visits Re quested Visits Authorized [id number] Closed 11/29/2022 12/29/2023 1 1 Encounter Details Date Type Department Care Team (Late st Contact Info) Description 07/06/2020 Hospital Encounter [facility] [address] [place] [phone] Social History Tobacco Use Types Packs/Day Years Used Date Smoking Tobacco: Former Cigarettes Q uit: 1992 Smokeless Tobacco: Former Comments Unknown Sex and Gender Information Value Date Recorded Sex Assigned at Not on file Legal Sex 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 There will be no report generated by a [facility] Radiologist. Narrative [facility]_MAMMO_[facility] - 11/29/2022 11:32 AM CDT EXAMINATION: Images For Reference Purposes Only us Sunil Meléndez NP IMG MAMMO PROCEDURES Final Result [facility]MO[facility] documented in this encounter Visit Diagnoses Not on filedocumented in this encounter
--- OUTSIDE RECORDS SUMMARY | 2024-10-24 10:12 | XMS_ITS | Clinical Summary ---
Author Organization [facility] Address [address] [place] [id number] Care Team Providers Care Environmental Law Professor Name Role Phone Radu Hoskins MD Primary [...] Abnormal mammogram 12/03/2022 Mass of breast 11/13/2011 Surgical History Surgery Date Site/Laterality Comments SECTION 08/18/1986 - 08/17/1987 Family History Medical History Relation Name Comments Colon cancer Father Colon cancer Father's Brother Relation Name Status Comments Father Father's Brother Social History Tobacco Use Types Packs/Day Years Used Date Smoking Tobacco: Former Cigarettes Q uit: 1992 Smokeless Tobacco: Former Tobacco Cessation:Counseling Given: Not Answered Comments Unknown Sex and Gender Information Value Date Recorded Sex Assigned at Not on file 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 Gender Identity Not on file Sexual Orientation Not on file Obstetrics History Para Term AB IAB SAB Ectopic Multiple Livin g Live Births 2 2 2 Date Outcome GA Total Labor Labor/2nd/3rd Weight Sex Type Anes PTL Mariana A1 A5 Name Clin Term Term Last Filed Vital Signs Vital Sign Reading [...] 12/03/2022 10:23 AM CDT Plan of Treatment Health Maintenance Due Date Last Done Comments Breast Cancer Screening-Mammogram 1966 Cervical Cancer Screening 1966 Colon Cancer Screening-Colonoscopy 1966 Depression Screening 1966 Hepatitis C Screening 1966 DTaP/Tdap/Td Vaccine (1 - Tdap) 1977 Hepatitis B Screening 1984 Regular Well Visit/Exam 18-64 1984 Zoster Vaccine (1 of 2) 2016 Covid-19 Vaccine (3 - 2023-2 5 season) 2024 01/18/2021, 12/14/2020 Influenza Vaccine (#1) 2024 Pneumococcal vaccine <65 Aged Out No longer eligible based on patient's age to complete this topic Insurance [facility] [place] [place] [address] [facility] [employer] SIGNATURE Care Teams Environmental Law Professor Relationship Specialty Start Date End Date Radu Hoskins MD [address] [facility] [address] [place] [address] PCP - General Family Medicine 12/09/22
[2024-10-24 10:14] VITALS: BP 130/100; PULSE 72; RESP 16; TEMP 36.4; O2SAT 100
--- OUTSIDE RECORDS SUMMARY | 2024-10-24 10:14 | XMS_ITS | Continuity of Care Document ---
Author Organization [facility] Address [address] [place] [address] Phone Care Team Providers Care Municipal Bond Trader Name Role Phone Joey PT,MPT,ATC, Dank Unavailable Unavai lable Procedures Procedure Date PT Evaluation Moderate Complexity Therapeutic Activities Neuromuscular Re-Ed Therapeutic Exercise Advance Directives Directive Yes / No Effective Date File Name No Information Encounters Encounter Description Practice Location Reason(s) For Visit Diagnoses Date Provider Providers Copied on Encounter [facility], [address], [place], [place], [id number], tel:[phone] [place] No Information Joey [place] , [place], [place]. Referring Provider: Radu Hoskins, [address] [facility] [address], [place], [address]. tel:[phone] Family History Family Member Type Diagnosis Age At Onset No Information Payers Payer name Insurance type Covered green party ID Authoriza tidawood(s) [employer] [facility] [id number] Social History Type Description Quantity Date Captured [...]
--- NOTE | 2024-10-24 10:40 | ED.GENADULT ---
HPI - General Adult General Chief complaint: Skin/Abscess/Foreign Body Stated complaint: fluid on left elbow Source: patient Mode of arrival: ambulatory Limitations: no limitations History of Present Illness HPI narrative: Pt presents for left elbow swelling. She has noted a burning sensation in the left elbow for awhile. Within the last 48 hours she noted swelling to the left elbow. She cannot identify any precipitating cause or injury. She reviewed photos on-line indeterminate she had bursitis. No loss of range of motion. No associated redness. Denies pain per se. She is right-hand dominant. She took 400 mg of ibuprofen for symptoms. Related Data Home Medications ?Medication ?Instructions ?Recorded ?Confirmed ?Last Taken ?Type estradiol cypionate 5 mg/mL 1.5 mg IM WEEKLY 12/18/21 08/29/23 Unknown History intramuscular oil progesterone micronized 100 mg 100 mg vaginal EVERY OTHER DAY 12/18/21 08/29/23 Unknown History vaginal insert testosterone cypionate 100 mg/mL 50 mg IM WEEKLY 12/18/21 08/29/23 Unknown History intramuscular oil Allergies Allergy/AdvReac Type Severity Reaction Status Date / Time azithromycin Allergy Intermediate Hives Verified 10/24/24 10:17 latex Allergy Intermediate Rash Verified 10/24/24 10:17 Review of Systems Review of Systems: CONSTITUTIONAL: Denies fever, chills, or sweats. EYES: Denies visual changes, redness, or discharge. ENT: Denies rhinorrhea, congestion, sore throat, or otalgia. CARDIOVASCULAR: Denies chest pain, palpitations, or edema. RESPIRATORY: Denies cough or dyspnea. GASTROINTESTINAL: Denies abdominal pain, nausea, vomiting, or diarrhea. GENITOURINARY: Denies dysuria or hematuria. SKIN: Denies rash or itching. MUSCULOSKELETAL: Reports swelling left elbow without pain or loss of range of motion NEUROLOGIC: Denies headache, numbness, dizziness, or weakness. PSYCHIATRIC: Denies anxiety or depression. [facility] Past Medical History Medical History (Updated 10/24/24 @ 11:13 by Max Treadwell, DINESH, MERCEDES) Thyroid disease Onychomycosis ADD (attention deficit disorder) FHx: colon cancer Surgical History Surgical History No pertinent past surgical history Family History Family History Father Family history of cardiovascular disease Carcinoma of colon Sibling Family history of cardiovascular disease Social History Social History Years smoked: 8 Smoking status: Never smoker Tobacco type: cigarettes Second hand tobacco smoke exposure: No Smoking end date: 08/18/96 Alcohol intake: current Drinks per week: 3 Substance use: never Substance use type: does not use Living arrangements: with family Occupation/Education: occupation Gender identity (if verbalized by the patient): Female Spiritual care concerns: No Exam Narrative: GENERAL: Well-appearing, well-nourished, and in no acute distress. HEAD: Normocephalic, atraumatic. EYES: PERRLA and EOMI. ENT: Nares clear, no rhinorrhea or epistaxis. Mucous membranes moist. Oropharynx without tonsillar hypertrophy exudate or other lesions. Bilateral TMs pearly east nonbulging NECK: Supple. No adenopathy or masses. No carotid bruits or JVD CHEST: Clear to auscultation. No respiratory distress. No wheezes rales or rhonchi HEART: Regular rate and rhythm. No murmur heard. Normal peripheral pulses. ABDOMEN: Soft, nontender, nondistended, normal active bowel sounds. EXTREMITIES: There is swelling in the left elbow. No tenderness in the left elbow. Full range of motion intact. No crepitus. SKIN: Warm, dry, no rash. No erythema to the left elbow NEURO: No focal deficits. Alert and oriented x3. PSYCH: Normal mood and affect. Course Course Emergency Course: This is a 59-year-old female who presented for evaluation of left elbow swelling. X-ray negative for fracture. Exam consistent with bursitis. She has already tried ibuprofen. Will try prednisone. Follow-up with primary provider. Go to the ER for worsening symptoms. Patient in agreement with plan of care. Level of Care: Express Care Visit Vital Signs Vital signs: Vital Signs Temperature 36.4 C 10/24/24 10:14 Pulse Rate 72 10/24/24 10:14 Respiratory Rate 16 10/24/24 10:14 Blood Pressure 130/100 H 10/24/24 10:14 Pulse Oximetry 100 10/24/24 10:14 Oxygen Delivery Room Air 10/24/24 10:14 Temperature 36.4 C 10/24/24 10:14 Pulse Rate 72 10/24/24 10:14 Respiratory Rate 16 10/24/24 10:14 Blood Pressure 130/100 H 10/24/24 10:14 Pulse Oximetry 100 10/24/24 10:14 Oxygen Delivery Room Air 10/24/24 10:14 Medical Decision Making Vital Signs Vital Signs: Vital Signs Temperature 36.4 C 10/24/24 10:14 Pulse Rate 72 10/24/24 10:14 Respiratory Rate 16 10/24/24 10:14 Blood Pressure 130/100 H 10/24/24 10:14 Pulse Oximetry 100 10/24/24 10:14 Oxygen Delivery Room Air 10/24/24 10:14 Temperature 36.4 C 10/24/24 10:14 Pulse Rate 72 10/24/24 10:14 Respiratory Rate 16 10/24/24 10:14 Blood Pressure 130/100 H 10/24/24 10:14 Pulse Oximetry 100 10/24/24 10:14 Oxygen Delivery Room Air 10/24/24 10:14 Imaging Data Radiologist's impression: Left elbow Technique: AP, oblique, and lateral views were obtained. Clinical History: Pain Findings: No acute fracture or dislocation is seen. Osseous alignment is anatomic. Joint spaces are preserved. There is no displacement of the fat pads, and no evidence of joint effusion. There is soft tissue swelling over the olecranon. Impression: Olecranon bursitis. Discharge Plan Discharge Clinical Impression: Bursitis of left elbow Patient Disposition: Home, Self-Care Condition: Stable Instructions: Antibiotic Form, Elbow Bursitis (ED) Patient Language: Serbian Prescriptions: New prednisone 50 mg tablet 50 mg PO DAILY Qty: 5 0RF No Action testosterone cypionate 100 mg/mL oil 50 mg IM WEEKLY Rx Instructions: as a single dose estradiol cypionate 5 mg/mL oil 1.5 mg IM WEEKLY progesterone micronized 100 mg insert 100 mg vaginal EVERY OTHER DAY Follow-up/Referrals: Radu Hoskins MD [Primary Care Provider] - Time of Disposition: 11:14
== END 2024-10-24 11:20 | disposition home or self-care (01) ==
PROVIDERS: Emergency Provider Nurse Practitioner; PCP Family Medicine
DX: M70.32 Other bursitis of elbow, left elbow (principal); Z87.891 Personal history of nicotine dependence
CPT/HCPCS: 73080; 99213; G0463

== ENCOUNTER 2025-02-21 15:49 | Outpatient (CLI) | payer BC, SELFPAY ==
--- NOTE | ~2025-02-21 | MM_ITS ---
EXAMINATION: MM screening alan BI w kristy HISTORY: Screening TECHNIQUE: Craniocaudal and mediolateral oblique 3-D tomosynthesis images were obtained and synthetic 2-D images were generated. CAD analysis was submitted and interpreted. COMPARISON: Comparison to multiple prior studies sequentially, with oldest reviewed study dated 03/12. BREAST PARENCHYMAL COMPOSITION: Dense: The breasts are extremely dense, which lowers the sensitivity of mammography. FINDINGS: There is no evidence of suspicious mass, calcification, or architectural distortion to sugg est malignancy in either breast. There has been no suspicious interval change. IMPRESSION: 1. No mammographic evidence of malignancy. 2. Recommend routine screening mammography in one year. BI-RADS Category 1: Negative Reviewed, dictated and finalized at location A.
== END 2025-02-21 15:50 | disposition home or self-care (01) ==
LOC: MICIMG 15:50
PROVIDERS: PCP Family Medicine; Visit Provider Student in an Organized Health Care Education/Training Program
DX: Z12.31 Encounter for screening mammogram for malignant neoplasm of breast (principal)
CPT/HCPCS: 77063; 77067

== ENCOUNTER 2025-03-03 09:44 | Outpatient (CLI) | payer BC, SELFPAY ==
--- OUTSIDE RECORDS SUMMARY | 2025-03-03 09:50 | XMS_ITS | Clinical Summary ---
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 Gender Identity Not on file Sexual [...] 10:23 AM CDT Height 156.2 cm (5' 1.5) 12/03/2022 10:23 AM CD T Body Mass [...] 5 season) 2024 01/18/2021, 12/14/2020 Influenza Vaccine (Season Ended) 2025 Pneumococcal vaccine <65 Aged Out No longer eligible based on patient's age to complete this topic Insurance [facility] [place] [address] [facility] [employer] Care Teams Telecommunications Line Mechanic Relationship Specialty Start Date End Date Radu Hoskins MD [address] [facility] [address] [place] [address] PCP - General Family Medicine 12/09/22
--- OUTSIDE RECORDS SUMMARY | 2025-03-03 09:50 | XMS_ITS | Encounter Summary ---
Author Organization [facility] Healthcare Address [address] [place] [address] Care Team Providers Care Secondary Education Professor Name Role Phone Unavailable Primary Care Provider Unavailabl e Reason for Visit * Diagnostic Imaging (Routine) - Closed Specialty Diagnoses / Procedures Referred By Keke t Referred To Contact Procedures Breast Imaging Screening Outside Reference Sunil Meléndez NP Phone: tel: fax: Referral ID Status Reason Start Date Expiration Date Visits Re quested Visits Authorized [id number] Closed 11/29/2022 12/29/2023 1 1 Encounter Details Date Type Department Care Team (Late st Contact Info) Description 07/06/2020 Hospital Encounter [facility]) [address] [place] [phone] Social History Tobacco Use Types Packs/Day Years Used Date Smoking Tobacco: Former Cigarettes Q uit: 1992 Smokeless Tobacco: Former Comments Unknown Sex and Gender Information Value Date Recorded Sex Assigned at Not on file 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 Gender Identity Not on file Sexual Orientation Not on file documented as of this encounter Plan of Treatment Not on file documented as of this encounter Procedures Procedure Name Priority Date/Time Associated Diagnosis Comments BREAST IMAGING MG SCREENING OUTSIDE REFERENCE Routine 07/06/2020 12:00 AM TONGUE TRIMMER documented in this encounter Results * Breast Imaging Screening Outside Reference (07/06/2020 12:00 AM TONGUE TRIMMER) Impressions RAD_MAMMO_[facility] - 11/29/2022 11:32 AM CDT These images are for Reference purposes only and have not been reviewed by [facility] Radiology. There will be no report generated by a [facility] Radiologist. Narrative [facility]_MAMMO_[facility] - 11/29/2022 11:32 AM CDT EXAMINATION: Images For Reference Purposes Only us Sunil Meléndez NP IMG MAMMO PROCEDURES Final Result [facility] documented in this encounter Visit Diagnoses Not on filedocumented in this encounter
--- OUTSIDE RECORDS SUMMARY | 2025-03-03 09:50 | XMS_ITS | Referral Summary ---
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
--- OUTSIDE RECORDS SUMMARY | 2025-03-03 09:50 | XMS_ITS | Encounter Summary ---
Author Organization [facility] Healthcare Address [address] [place] [address] Care Team Providers Care Business Assistant Name Role Phone Unavailable Primary Care Provider Unavailabl e Reason for Visit * Diagnostic Imaging (Routine) - Closed Specialty Diagnoses / Procedures Referred By Keke t Referred To Contact Procedures Breast Imaging Screening Outside Reference Sunil Meléndez NP Phone: tel: fax: Referral ID Status Reason Start Date Expiration Date Visits Re quested Visits Authorized [id number] Closed 11/29/2022 12/29/2023 1 1 Encounter Details Date Type Department Care Team (Late st Contact Info) Description 03/12/2019 Hospital Encounter [facility]) [address] [place] [id number] Social History Tobacco Use Types Packs/Day Years Used Date Smoking Tobacco: Former Cigarettes Q uit: 1992 Smokeless Tobacco: Former Comments Unknown Sex and Gender Information Value Date Recorded Sex Assigned at Not on file 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 There will be no report generated by a [facility] Radiologist. Narrative [facility]_MAMMO[facility] - 11/29/2022 11:32 AM CDT EXAMINATION: Images For Reference Purposes Only us Sunil Meléndez NP IMG MAMMO PROCEDURES Final Result [facility] documented in this encounter Visit Diagnoses Not on filedocumented in this encounter
--- OUTSIDE RECORDS SUMMARY | 2025-03-03 09:50 | XMS_ITS | Clinical Summary ---
Author Organization [facility] Address [address] [facility] [place] [address] Phone Care Team Providers Care Linen Room Custodian Name Role Phone Unavailable Primary Care Provider [...]
--- OUTSIDE RECORDS SUMMARY | 2025-03-03 09:51 | XMS_ITS | Data Portability ---
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 [email or web address] Not available 12/18/2023 17:29:10 12/21/2024 12/21/2024 Annual gynecological exam performed. Patient will come back in a year unless there are new symptoms. [email or web address] Not available 12/21/2024 16:36:27 Plan of Treatment Reminders Order Date Submit Date Provider Last Modified By Organization Details Last Modified Time Details Appointments None recorded. Lab lh + FSH, serum 2019 020 [email or web address] [facility] ([facility]), [address] [facility] [address] , [address], [place], [address], 0 09:10:55 CBC w/ auto diff 2019 020 [email or web address] [facility] ([facility]), [address] [facility] , [address], [place], [address], 0 09:10:55 CMP, serum or plasma 2019 020 [email or web address] [facility] ([facility]), [address] [facility] , [address], [place], [address], 0 09:10:55 TSH, serum or plasma 2019 020 [email or web address] [facility] ([facility]), [address] [facility] , [address], [place], [address], 0 09:10:55 testostero ne, free + total, serum 2019 020 [email or web address] [facility] ([facility]), [address] [facility] , [address], [place], [address], 0 09:10:56 testostero ne, total, serum 2019 020 [email or web address] [facility] ([facility]), [address] [facility] , [address], [place], [address], 0 09:10:56 Referral None recorded. Procedures None recorded. Surgeries None recorded. Imaging MAMMO, screening, digital, bilateral 2024 025 [facility], [address], [address], [place], [address], 5 08:11:18 MAMMO, screening, bilateral 2023 024 DIONICIO Not available 4 07:16:29 Medication Orders Imvexxy Starter Pack 4 mcg vaginal insert, dose pack 2019 020 [email or web address] [id number], [address], [place], [place], [id number], 1 16:17:00 Patient TargetsNo targets recorded. Patient InstructionsNo [...] Gynec ologi avery Repor t Case: [id number] Autho gabino busch Provi josy: Ryann Brooks NP Colle cted: [...] was confi rmed by an addit ional scree ner. FINAL DIAGN OSIS: Negat chris for Intra epith elial Michael brizuela or Lexi calhoun (NIL) . Nerissa holden anoop d by Alfredo Young, CT on 2020 at 8:02 PM ----- [...] as clini merari yee nted. Not Available [facility] (Lab) [address], [place], [address], 07/20/2021 21:10:27 12/19/19 22 12/18/2021 CBC W/DIF F WBC 6.9 10'3/ uL 3.6-10 .2 Not Available [facility] (Lab) [address] , [place], [address], 12/19/2021 09:32:09 12/19/19 22 12/18/2021 CBC W/DIF F RBC 4.90 10'6/ uL (based on docume nted legal sex) 4.10-5 .30 Not Available [facility] (Lab) [address], [place], [address], 12/19/2021 09:32:09 12/19/19 22 12/18/2021 CBC W/DIF F HGB 14.6 g/dL (based on docume nted legal sex) 11.9-1 5.8 Not Available [facility] (Lab) [address], [place], [address], 12/19/2021 09:32:09 12/19/19 22 12/18/2021 CBC W/DIF F HCT 44.8 % (based on docume nted legal sex) 37.4-4 8.3 Not Available [facility] (Lab) [address], [place], [address], 12/19/2021 09:32:09 12/19/19 22 12/18/2021 CBC W/DIF F MCV 92.0 fL 82.0-9 9.0 Not Available [facility] (Lab) [address] , [place], [address], 12/19/2021 09:32:09 12/19/19 22 12/18/2021 CBC W/DIF F MCH 30.0 pg 27.0-3 3.0 Not Available [facility] (Lab) [address] [facility], [place], [address], 12/19/2021 09:32:09 12/19/19 22 12/18/2021 CBC W/DIF F MCHC 33.0 g/dL 32.0-3 6.0 Not Available [facility] (Lab) [address] [facility], [place], [address], 12/19/2021 09:32:09 12/19/19 22 12/18/2021 CBC W/DIF F RDW 12.0 % 11.0-1 5.0 Not Available [facility] (Lab) [address] [facility], [place], [address], 12/19/2021 09:32:09 12/19/19 22 12/18/2021 CBC W/DIF F plt 277 10'3/ uL 150-45 0 Not Available [facility] (Lab) [address] [facility], [place], [address], 12/19/2021 09:32:09 12/19/19 22 12/18/2021 CBC W/DIF F MPV 10.3 fL 9.8-12 .7 Not Available [facility] (Lab) [address] [facility], [place], [address], 12/19/2021 09:32:09 12/19/19 22 12/18/2021 CBC W/DIF F NRBC's 0.00 % 0 Not Available [facility] (Lab) [address] [facility], [place], [address], 12/19/2021 09:32:09 12/19/19 22 12/18/2021 CBC W/DIF F absolute NRBCs 0.0 10'3/ uL 0 Not Available [facility] (Lab) [address] [facility], [place], [address], 12/19/2021 09:32:09 12/19/19 22 12/18/2021 CBC W/DIF F neutrophils 62.0 % 37.0-7 2.0 Not Available [facility] (Lab) [address] [facility], [place], [address], 12/19/2021 09:32:09 12/19/19 22 12/18/2021 CBC W/DIF F lymphocytes 29.0 % 16.0-4 8.0 Not Available [facility] (Lab) [address] [facility], [place], [address], 12/19/2021 09:32:09 12/19/19 22 12/18/2021 CBC W/DIF F monocytes 8.0 % 4.0-14 .0 Not Available [facility] (Lab) [address] [facility], [place], [address], 12/19/2021 09:32:09 12/19/19 22 12/18/2021 CBC W/DIF F eosinophils 1.0 % 0.0-9. 0 Not Available [facility] (Lab) [address] [facility], [place], [address], 12/19/2021 09:32:09 12/19/19 22 12/18/2021 CBC W/DIF F basophils 0.0 % 0.0-2. 0 Not Available [facility] (Lab) [address] [facility], [place], [address], 12/19/2021 09:32:09 12/19/19 22 12/18/2021 CBC W/DIF F immature granulocytes 0.0 % no define d refere nce range Not Available [facility] (Lab) [address] [facility], [place], [address], 12/19/2021 09:32:09 12/19/19 22 12/18/2021 CBC W/DIF F absolute neutrophils 4.2 10'3/ uL 1.1-6. 0 Not Available [facility] (Lab) [address] [facility], [place], [address], 12/19/2021 09:32:09 12/19/19 22 12/18/2021 CBC W/DIF F absolute lymphocytes 2.0 10'3/ uL 0.7-3. 4 Not Available [facility] (Lab) [address] [place], [address], 12/19/2021 09:32:09 12/19/19 22 12/18/2021 CBC W/DIF F absolute monocytes 0.5 10'3/ uL 0.3-1. 0 Not Available [facility] (Lab) [address] [facility], [place], [address], 12/19/2021 09:32:09 12/19/19 22 12/18/2021 CBC W/DIF F absolute eosinophils 0.1 10'3/ uL 0.0-0. 6 Not Available [facility] (Lab) [address] [facility], [place], [address], 12/19/2021 09:32:09 12/19/19 22 12/18/2021 CBC W/DIF F absolute basophils 0.0 10'3/ uL 0.0-0. 1 Not Available [facility] (Lab) [address] [facility], [place], [address], 12/19/2021 09:32:09 12/19/19 22 12/18/2021 CBC W/DIF F absolute immature granulocytes 0.00 10'3/ uL 0.00-0 .10 022 3:33 AM: P indic ates parti al resul ts on a panel have been relea sed. Addit ional resul ts will follo w. 022 3:33 AM: This resul t has been final verif ied. No addit ional or martinez ed resul ts are expec barbara. Not Available [facility] (Lab) [address] [facility], [place], [address], 12/19/2021 09:32:09 12/19/19 22 12/18/2021 PHOSP HORUS phosphorus 4.2 mg/dL 2.5-5. 0 Not Available [facility] (Lab) [address] [facility], [place], [address], 12/19/2021 09:32:10 12/19/19 22 12/18/2021 CMP(C OMPRE HENSI VE METAB OLIC PANEL ) sodium 142 mmol/ L 133-14 6 Not Available [facility] (Lab) [address] [facility], [place], [address], 12/19/2021 09:32:11 12/19/19 22 12/18/2021 CMP(C OMPRE HENSI VE METAB OLIC PANEL ) potassium 3.9 mmol/ L 3.5-5. 1 Not Available [facility] (Lab) [address] [facility], [place], [address], 12/19/2021 09:32:11 12/19/19 22 12/18/2021 CMP(C OMPRE HENSI VE METAB OLIC PANEL ) chloride 105 mmol/ L 98-107 Not Available [facility] (Lab) [address] [facility], [place], [address], 12/19/2021 09:32:11 12/19/19 22 12/18/2021 CMP(C OMPRE HENSI VE METAB OLIC PANEL ) carbon dioxide 27 mmol/ L 21-31 Not Available [facility] (Lab) [address] [facility], [place], [address], 12/19/2021 09:32:11 12/19/19 22 12/18/2021 CMP(C OMPRE HENSI VE METAB OLIC PANEL ) anion gap 10 mmol/ L 4-13 Not Available [facility] (Lab) [address] [facility], [place], [address], 12/19/2021 09:32:11 12/19/19 22 12/18/2021 CMP(C OMPRE HENSI VE METAB OLIC PANEL ) blood urea nitrogen 20 mg/dL 7-25 Not Available [facility] (Lab) [address] [facility], [place], [address], 12/19/2021 09:32:11 12/19/19 22 12/18/2021 CMP(C OMPRE HENSI VE METAB OLIC PANEL ) creatinine 0.80 mg/dL 0.60-1 .30 Not Available [facility] (Lab) [address] [facility], [place], [address], 12/19/2021 09:32:11 12/19/19 22 12/18/2021 CMP(C OMPRE HENSI VE METAB OLIC PANEL ) egfrcr (CKD-epi 2020) 87 mL/mi n/1.7 3_m2 >=60 Not Available [facility] (Lab) [address], [place], [address], 12/19/2021 09:32:11 12/19/19 22 12/18/2021 CMP(C OMPRE HENSI VE METAB OLIC PANEL ) calcium 10.1 mg/dL 8.3-10 .5 Not Available [facility] (Lab) [address], [place], [address], 12/19/2021 09:32:11 12/19/19 22 12/18/2021 CMP(C OMPRE HENSI VE METAB OLIC PANEL ) glucose 85 mg/dL 70-100 Not Available [facility] (Lab) [address], [place], [address], 12/19/2021 09:32:11 12/19/19 22 12/18/2021 CMP(C OMPRE HENSI VE METAB OLIC PANEL ) protein, total 6.7 g/dL 6.4-8. 3 Not Available [facility] (Lab) [address] [facility], [place], [address], 12/19/2021 09:32:11 12/19/19 22 12/18/2021 CMP(C OMPRE HENSI VE METAB OLIC PANEL ) albumin 4.6 g/dL 3.5-5. 0 Not Available [facility] (Lab) [address] [facility], [place], [address], 12/19/2021 09:32:11 12/19/19 22 12/18/2021 CMP(C OMPRE HENSI VE METAB OLIC PANEL ) ALT 18 units /L 9-43 Not Available [facility] (Lab) [address] [facility], [place], [address], 12/19/2021 09:32:11 12/19/19 22 12/18/2021 CMP(C OMPRE HENSI VE METAB OLIC PANEL ) alkaline phosphatase 56 units /L 34-104 Not Available [facility] (Lab) [address] [place], [address], 12/19/2021 09:32:11 12/19/19 22 12/18/2021 CMP(C OMPRE HENSI VE METAB OLIC PANEL ) AST 19 units /L 13-39 Not Available [facility] (Lab) [address] [facility], [place], [address], 12/19/2021 09:32:11 12/19/19 22 12/18/2021 CMP(C OMPRE HENSI VE METAB OLIC PANEL ) bilirubin, total 0.5 mg/dL 0.2-1. 2 Not Available [facility] (Lab) [address] [place], [address], 12/19/2021 09:32:11 12/19/19 22 12/18/2021 VITAM IN D, 25-OH (TOTA L D2/D3 ) vitamin D, 25-hydroxy, total 93.9 NG/mL 30-80 high NOTE: Defic iency : <20 ng/mL Insuf ficie ncy: 20-29 ng/mL Optim um Level : 30-80 ng/mL Possi ble Toxic ity: >80 ng/mL Most patie nts with toxic ity have level s >150 ng/mL . Not Available [facility] (Lab) [address] [facility], [place], [address], 12/19/2021 09:32:12 12/19/19 22 12/18/2021 TSH, REFLE X FREE T4 TSH 0.01 uIU/m L 0.30-5 .33 low Not Available [facility] (Lab) [address] [place], [address], 12/19/2021 09:32:13 12/19/19 22 12/18/2021 T4 FREE T4, free 2.29 NG/dL 0.60-1 .40 high Not Available [facility] (Lab) [address], [place], [address], 12/19/2021 09:32:19 07/07/20 20 07/06/2020 MAMMO , scree joi, bilat eral No observ ation record ed. [address] [facility] [address], [place], [address], 12/18/2023 18:04:30 07/16/20 21 07/14/2021 MAMMO , scree joi, bilat eral No observ ation record ed. [address] [facility] [address], [place], [address], 12/18/2023 18:04:30 11/28/19 22 11/27/2021 DEXA, axial skele ton + verte bral fract ure asses sment No observ ation record ed. [address] [facility] [address], [place], [address], 12/18/2023 18:04:30 11/28/19 22 11/27/2021 DEXA, axial skele ton + verte bral fract ure asses sment No observ ation record ed. [address] [facility] [address], [place], [address], 12/18/2023 18:04:30 10/30/19 23 10/25/2022 MAMMO , scree joi, bilat eral No observ ation record ed. [address] [facility] [address], [place], [address], 12/18/2023 18:04:30 11/23/19 23 11/21/2022 MAMMO , diagn ostic , unila teral No observ ation record ed. [address] [facility] [address], [place], [address], 12/18/2023 18:04:30 01/07/20 23 11/21/2022 US, breas t, unila teral No observ ation record ed. [address] [facility] [address], [place], [address], 12/18/2023 18:04:30 01/07/20 23 11/21/2022 mammo gram, follo w up* No observ ation record ed. [address] [facility] [address], [place], [address], 12/18/2023 18:04:30 02/17/20 24 02/16/2024 MAMMO , scree joi, bilat eral No observ ation record ed. [facility] [address], [place], [address], 03/09/2024 04:07:32 02/23/20 25 02/21/2025 MAMMO , scree joi, digit al, bilat eral No observ ation record ed. [facility] [address], [place], [address], 02/22/2025 11:11:23 Result Notes None recorded. Problems Name Problem SNOMED Code Status Onset Date Resolution Date Notes Provider Name and Address Organization Details Recorded Time Breast lump 76796204 Completed 201307/11/2021 Breast Lump Or Mass;Rec orded Elsewher e: No Locat ion: Wes almazan [facility] S ource: [employer] shanna: N Practi ce ID: [id number] Ezio lable Time: 03:30:00 PM Jillian Rincon [place], [place] - [facility] 16:17:44 Screenin g for malignan t neoplasm of rectum Completed 201307/11/2021 Screenin g for malignan t neoplasm s of the rectum;R ecorded Elsewher e: No [facility]: N Varshati ce ID: [id number] Ezio lable Time: 03:30:00 PM Jillian briggs, [facility] 16:18:23 Screenin g for malignan t neoplasm of cervix Completed 201307/11/2021 Screenin g for malignan t neoplasm s of the cervix;R ecorded Elsewher e: No Locat ion: [facility] S ource: [facility] sh[facility]: N Varshati ce ID: 0001 Ezio lable Time: 03:30:00 PM Jillian Rincon [facility], [facility] 16:18:22 Pregnanc y test negative [id number] Completed 201307/11/2021 Pregnanc y examinat ion or test, negative result;R ecorded Elsewher e: No Locat ion: [facility] S ource: [facility] shanna: N Varshati ce ID: [id number] Ezio lable Time: 11:45:00 AM Jillian Rincon [facility] 16:18:18 Insertio n of intraute rine contrace ptive device Completed 201307/11/2021 INSERTIO N OF IUD;Avni rded Elsewher e: No Locat ion: [facility] S ource: [facility]: N Varshati ce ID: 0001 Ezio lable Time: 11:45:00 AM Jillian briggs, [facility] 16:18:03 Uses IUD (intraut erine device) contrace ption [id number] Completed 201307/11/2021 Surveill ance of IUD;Avni rded Elsewher e: No Locat ion: [facility] S ource: [facility]: N Varshati ce ID: 0001 Ezio lable Time: 08:45:00 AM Jillian Rincon [facility], [facility] 16:18:05 Urinary tract infectio us disease [id number] Completed 201307/11/2021 UTI;Avni rded Elsewher e: No Locat ion: Wes almazan [facility] S ource: [employer] shanna: N Varshati ce ID: [id number] Ezio lable Time: 11:00:00 AM Jillian Rincon brigitte, [facility] 16:18:34 Leukocyt osis [id number] Completed 201307/11/2021 LEUKOCYT OSIS NOS;Avni rded Elsewher e: No [facility] S ource: [employer] shanna: N Varshati ce ID: [id number] Ezio lable Time: 11:00:00 AM Jillian Rincon brigitte [facility] 16:18:07 Mammogra phy abnormal [id number] Completed 201407/11/2021 Unspecif ied abnormal mammogra m;Record ed Elsewher e: No Locat ion: Wes almazan [facility] S ource: [employer] shanna: N Varshati ce ID: [id number] Ezio lable Time: 04:21:15 PM Jillian Rincon brigitte [facility] 16:18:10 Menstrua tion finding Completed 201407/11/2021 Excessiv e or frequent menstrua tion;Rec orded Elsewher e: No Locat ion: Wes almazan [facility] S ource: [employer] shanna: N Practi ce ID: [id number] Ezio lable Time: 04:00:00 PM Jillian Rincon brigitte [facility] 16:18:14 Malaise and fatigue [id number] Completed 201407/11/2021 Fatigue; Recorded Elsewher e: No Locat ion: [facility] S ource: [employer] shanna: N Varshati ce ID: [id number] Ezio lable Time: 04:00:00 PM Jillian briggs [facility] 1 16:18:08 Removal of intraute rine device Completed 201407/11/2021 REMOVAL OF IUD;Avni rded Elsewher e: No Locat ion: B[facility]u th[facility] S ource: [employer] shanna: N Practi ce ID: [id number] Ezio lable Time: 02:30:00 PM Jillian briggs, [facility] 1 16:18:20 Speciali zed medical examinat ion Completed 201407/11/2021 ROUTINE SIGHTSEEING GUIDE EXAMINAT ION;Avni rded Elsewher e: No Locat ion: [facility] S ource: [employer] shanna: N Practi ce ID: [id number] Ezio lable Time: 08:30:00 AM [facility] 16:18:29 Amenorrh ea [id number] Completed 201407/11/2021 Amenorrh ea;Recor ded Elsewher e: No Locat ion: [facility] S ource: [employer] shanna: N Practi ce ID: [id number] Ezio lable Time: 08:30:00 AM Jillian Rincon brigitte, [facility] 16:17:24 Speciali zed medical examinat ion Completed 201407/11/2021 Other specifie d chlamydi al diseases ;Recorde d Elsewher e: No Locat ion: [facility] S ource: [employer] shanna: N Practi ce ID: [id number] Ezio lable Time: 08:30:00 AM Jillian Rincon brigitte [facility] 16:18:30 Venereal disease screenin g Completed 201407/11/2021 Screenin g examinat ion for venereal disease; Recorded Elsewher e: No Locat ion: [facility] S ource: [employer] shanna: N Practi ce ID: [id number] Ezio lable Time: 08:30:00 AM Jillian Rincon brigitte [facility] 16:18:35 Syphilis test finding [id number] Completed 201607/11/2021 Encntr screen for infectio ns w sexl mode of transmis s;Record ed Elsewher e: No [facility]: [employer] shanna: N Kirk ce ID: [id number] Ezio lable Time: 08:30:00 AM Jillian Rincon [facility], [facility] 16:18:32 Infectio n screenin g Completed 201607/11/2021 Encounte r for screenin g for oth infec/pa rastc diseases ;Recorde d Elsewher e: No Locat ion: [facility] S ource: [employer] shanna: N Varshati ce ID: [id number] Ezio lable Time: 08:30:00 AM Jillian Rincon [facility] 16:18:01 Finding of menstrua l bleeding Completed 201607/11/2021 Excessiv e and frequent menstrua tion with regular cycle;Re corded Elsewher e: No Locat ion: [facility] S ource: [employer] shanna: N Varshati ce ID: 0001 Ezio lable Time: 03:30:00 PM Jillian Rincon brigitte [facility] 16:17:[address] Concept Completed 201707/11/2021 Encntr for obstetrics gynecology physician exam (general ) (routine ) w/o abn findings ;Recorde d Elsewher e: No Locat ion: [facility] S ource: [employer] shanna: N Varshati ce ID: [id number] Ezio lable Time: 08:30:00 AM Jillian Rincon brigitte [facility] 16:18:[address] Concept Completed 201707/11/2021 Encntr for general adult medical exam w/o abnormal findings ;Recorde d Elsewher e: No Locat ion: [facility] S ource: [employer] shanna: N Kirk ce ID: [id number] Ezio lable Time: 08:30:00 AM Jillian briggs [facility] 16:18:26 Disorder of perineum Completed 201807/11/2021 Condylom a acuminat um;Recor ded Elsewher e: No Locat ion: [facility] S ource: [facility] sh[place]: N Varshati ce ID: 0001 Ezio lable Time: 09:30:00 AM Jillian briggs [facility] 16:17:59 Menopaus e present [id number] Completed 201807/11/2021 Symptoms such as flushing , sleeples sness, headache , lack of concentr ation, associat ed with natural (age-rel ated) menopaus e;Record ed Elsewher e: No Locat ion: Bindu th[facility] S ource: [place] [place] sh[place]: N Varshati ce ID: 0001 Ezio lable Time: 11:30:00 AM Jillian briggs [facility] 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 16:18:16 Problem Notes None recorded. Procedures Surgical History Date Name Laterality Status Provider Name and Address Organization Details Recorded Time 02/16/20 Date of Last Mammogram completed [facility] 12/21/2024 16:37:36 12/18/19 Date of Last Pap Smear [facility] 12/21/2024 16:37:22 08/01/20 17 Colposcopy completed [facility] 07/11/2021 18:23:13 08/01/20 17 Colposcopy completed [facility] 07/11/2021 19:58:59 07/18/20 17 Hysteroscopy completed [facility] 07/11/2021 18:30:04 04/21/19 87 section completed [facility] 07/11/2021 18:28:29 Imaging Results None recorded. Procedure Notes None recorded. Medical Equipment None Reported. Allergies Allergen ID Allergen Name Allergen Category Reaction Reaction Severity Criticality Documentation Date Start Date Code Code System Note Provider Name and Address Organization Details Recorded Time 21568 latex environme nt,medica tion Not available Not available Not available 08/04/2020 80585 91 RxNorm React ion: Pruri tic rash; Comme nt: [facility]; [facility] 14:14:50 63815 azithromy lopez medicatio n Not available Not available Not available 08/04/2020 22229 RxNorm Comme nt: [facility]at [facility] Cau sativ e Agent : Zithr omax; Not Available [facility] 0 14:14:50 Medications Name Sig Start Date Stop Date Status Note LastModified by Organization Details LastModified Time Prometriu m 200 mg capsule take 1 capsule by oral route every day for 12 day at bedtime. 03/03 completed Prescrib darian Valencia e: No [facility] M odify By: cade canseco DateTime : 02/23/20 15 05:48:11 PM Not Available Not Available Not Available [place] Thyroid 60 mg tablet TAKE 1 TABLET BY MOUTH EVERY MORNING WITHOUT FOOD active Not Available Not Available No t Available anastrozo le 1 mg tablet TK 1/2 T PO TWICE WEEKLY 12/17 completed Not Available Not Available Not Available doxycycli ne hyclate 100 mg capsule TAKE 1 CAPSULE BY MOUTH TWICE DAILY WITH MEALS 12/21 completed Not Available Not Available Not Available Adderall 5 mg tablet take 1 tablet by oral route 2 times every day before breakfas t and at noon 07/11 completed Prescrib ed Elsewher e: Yes Loca tion: Wes almazan [facility] odify By: aislinn Almazan ncounter DateTime : 06/13/20 17 03:30:00 PM Not Available Not Available Not Available Provera 5 mg tablet take 1 tablet by oral route every day 07/11 completed Prescrib ed Elsewher e: No Locat ion: Wes almazan [facility] odify By: lam Tony nter DateTime [...] Elsewher e: No Locat ion: Wes almazan [facility] odify By: aislinn Almazan ncounter DateTime : 07/25/20 17 07:32:17 AM Not Available Not Available Not Available meloxicam 7.5 mg tablet TAKE 1 TABLET BY MOUTH ONCE DAILY 12/21 completed Not Available Not Available Not Available estradiol 1 mg tablet take 1 tablet by oral route every day 07/11 completed Prescrib ed Elsewher e: No Locat ion: Wes almazan [facility] odify By: lam Tony nter DateTime : 05/17/20 19 11:30:00 AM Not Available Not Available Not Available benzonata te 100 mg capsule TAKE 1 TO 2 CAPSULES BY MOUTH EVERY 8 HOURS NEEDED FOR COUGH 12/17 completed Not Available Not Available Not Available erythromy lopez 5 mg/gram (0.5 %) eye ointment APPLY A SMALL AMOUNT OF OINTMENT ON EYELID TWICE DAILY 12/21 completed Not Available Not Available Not Available prednison e 50 mg tablet TAKE 1 TABLET BY MOUTH ONCE DAILY 12/21 completed Not Available Not Available Not Available [place] Thyroid 30 mg tablet TAKE 1 TABLET BY MOUTH EVERY AFTERNOO N 07/11 completed Not Available Not Available Not Available gabapenti n 100 mg capsule TAKE 1 CAPSULE BY MOUTH AT BEDTIME 12/21 completed Not Available Not Available Not Available diazepam 10 mg tablet take 10mg P 1 hour before the procedur e 08/08 completed Prescrib ed Elsewher e: No Locat ion: [facility] odify By: ammisti gayleunter DateTime : 07/25/20 17 07:32:17 AM Not Available Not Available Not Available methylpre dnisolone 4 mg tablets in a dose pack TAKE BY MOUTH DIRECTED ON INSIDE OF PACKAGE 12/17 completed Not Available Not Available Not Available Piqua 5 mg-325 mg tablet take 2 tablets PO 2 hours before the procedur e 08/08 completed Prescrib ed Elsewher e: No Locat ion: [facility] odify By: ammisti gayleunter DateTime : 07/25/20 17 07:32:17 AM Not [...] Prescrib ed Elsewher e: No Locat ion: [facility] odify By: ammisti Almazan ncounter DateTime : 07/12/20 14 11:00:00 AM Not Available Not Available Not Available Estrogeni c Substance 5 mg/mL intramusc ular suspensio n Inject by intramus cular route. 12/21 completed Not Available Not Available Not Available Calcium-5 00 500 mg (as calcium carbonate 1,250 mg) tablet active Prescrib ed Elsewher e: Yes Loca tion: Wes almazan [facility] odify By: aislinn canseco DateTime : 11/30/19 15 04:00:00 PM Not Available Not Available Not Available Evening [facility] 500 mg capsule 12/17 completed Prescrib ed Elsewher e: Yes Loca tion: Wes almazan [facility] odify By: aislinn canseco DateTime : 11/30/19 15 04:00:00 PM Not Available Not Available Not Available Taylor 0.35 mg tablet take 1 tablet by oral route every day 11/29 completed Prescrib ed Elsewher e: No Locat ion: Wes almazan [facility] odify By: aislinn canseco DateTime : 06/28/20 14 08:45:00 AM Not Available Not Available Not Available Premarin 0.625 mg/gram vaginal cream 0.5mg PV nightly for 2 weeks and then twice a week for maintena nce 07/11 completed Not Available Not Available Not Available estradiol 12/21 completed Not Available Not Available Not Available testoster one active Not Available Not Available Not Available progester one active Not Available Not Available Not Available hydrochlo rothiazid e 12.5 mg tablet TAKE 1 TABLET BY MOUTH ONCE DAILY NEEDED FOR EDEMA OR SWELLING . 07/11 completed Not Available Not Available Not Available Women's Daily Multivita min 18 mg-400 mcg tablet active Prescrib ed Elsewher e: Yes Loca tion: Wes almazan [facility] odify By: anais hodges DateTime : 01/27/20 14 03:30:00 PM Not Available Not Available Not Available biotin 1 mg capsule active Prescrib ed Elsewher e: Yes Loca tion: Wes almazan [facility] odify By: aislinn canseco DateTime : [...] Not Available Not Available Vitals Date Recorded Systolic And Diastolic Provider Name and Address Organization Details Last Updated DateTime 12/18/2023 122/80 mm[Hg] Odette Espana, [facility]- [address], [place], [address], [facility] 12/18/2023 18:04:28 Date Recorded Body height Body mass index (BMI) Body weight Provider Name and Address Organization Details Last Updated DateTime 12/18/2023 155.58 cm 22.3 kg/m2 44175.49 g Adwoa Herndon [facility] 12/18/2023 17:32:51 Date Recorded Body height Body mass index (BMI) Body weight Systolic And Diastolic Provider Name and Address Organization Details Last Updated DateTime 12/21/2024 155.58 cm 23 kg/m2 44898.14 g 128/82 mm[Hg] Sheron Angulo [facility] 12/21/2024 16:47:51 Date Recorded Body height Body mass index (BMI) Body weight Systolic And Diastolic Provider Name and Address Organization Details Last Updated DateTime 07/07/2020 157.48 cm 23.4 kg/m2 62774.82 g 129/82 mm[Hg] Rika Russell [facility] 07/07/2020 11:23:35 Date Recorded Body height Body mass index (BMI) Body weight Systolic And Diastolic Provider Name and Address Organization Details Last Updated DateTime 07/11/2021 155.58 cm 23.4 kg/m2 49440.05 g 133/85 mm[Hg] Jillian Rincon [facility] 07/11/2021 16:16:12 Social History Question Answer Notes LastModified by Organizat ion Details LastModified Time Tobacco Smoking Status Former Smoker Jillian Rincon [facility], [facility] 07/11/2021 18:27:57 Are You Blind Or Do You Have Difficulty Seeing? No [email or web address] Information not available 07/11/2021 What Is Your Level Of Caffeine Consumption? Occasional [email or web address] Information not available 07/11/2021 In The 14 Days Before Symptom Onset, Have You Had Close Contact With A Laboratory-confir med COVID-19 While That Case Was Ill? No [email or web address] Information not available 07/11/2021 In The 14 Days Before Symptom Onset, Have You Had Close Contact With A Person Who Is Under Investigation For COVID-19 While That Person Was Ill? No [email or web address] Information not available 07/11/2021 Have You Been To An Area Known To Be High Risk For COVID-19? No [email or web address] Information not available 07/11/2021 Are You Deaf Or Do You Have Serious Difficulty Hearing? No [email or web address] Information not available 07/11/2021 What Type Of Diet Are You Following? REGULAR Information not available 07/11/2021 Have You Ever Been Counseled For Unhealthy Alcohol Use? No [email or web address] Information not available 07/11/2021 Do You Use Your Seat Belt Or Car Seat Routinely? Yes [email or web address] Information not available 07/11/2021 Do You Have Smoke And Carbon Monoxide Detectors In Your Home? Yes Information not available 07/11/2021 Do You Use Sunscreen Routinely? Yes Information not available 07/11/2021 Has Tobacco Cessation Counseling Been Provided? No [email or web address] Information not available 07/11/2021 Sex: Unknown Functional Status Question Answer Note LastModified by Organizat ion Details LastModified Time Do you use any illicit or recreational drugs? No Information not available 07/11/2021 Do you or have you ever used any other forms of tobacco or nicotine? No [email or web address] Information not available 07/11/2021 What is your level of alcohol consumption? Occasional [email or web address] Information not available 07/11/2021 Are you able to walk? YESWOREST [email or web address] Information not available 07/11/2021 What is your exercise level? Occasional Information not available 07/11/2021 Mental Status Question Answer Note LastModified by Organization D etails LastModified Time Do you feel stressed (tense, restless, nervous, or anxious, or unable to sleep at night)? [id number] [email or web address] Information not available 07/11/2021 Family History Relationship Description Onset Age of this Age Resolved Age Notes LastModified by Organization Details LastModified Time Father Heart disease [email or web address] Not available 07/11 18:26:38 Father Congestive heart failure [email or web address] Not available 07/11 18:27:00 Father Diabetes mellitus [email or web address] Not available 07/11 18:27:08 Father Malignant tumor of colon 63 [email or web address] Not available 07/11 19:50:23 Brother Heart disease [email or web address] Not available 07/11 18:26:38 Brother Congestive heart failure [email or web address] Not available 07/11 18:27:00 Medical History Condition Response Allergies (Food, seasonal, environmental ) N Other N Drug/Latex Allergies/Reactions Y Blood Transfusion N Breast Cancer N Dermatologic Disorders N Lung Disease N Defects or Inherited Disease N Breast Problem Y Gestational Diabetes N Hematologic disorders N Anesthesia Complications N History of STI N Deep Vein Thrombosis N Polycystic ovary syndrome N Anxiety Disorder Y Autoimmune disease N Arthritis Y Polyps N Infertility N Acid Reflux (GERD) N History of abnormal pap N Cancer N Varicosities N Stroke N Neurologic/Epilepsy N Endometriosis N High Cholesterol N Fibromyalgia N Headaches N Kidney Disease N Heart Problems N Thyroid Problems N Kidney or Bladder Problems N GI Problems N Eating Disorder [...] Abnormal Pap N Date of Last Mammogram 02/16/2024 Date of LMP 08/18/2019 STIs/STDs N HPV Vaccine N Colposcopy 08/01/2017 Current Control Method Menopause If Post Menopausal, Age at Menopause 52 Date of Last Colonoscopy Sexually Active? Y Menses Monthly N Date of Last Pap Smear 12/18/2023 Sexual Problems? N LMP Approximate Obstetrics History GPAL:G 2 P 2 0 0 2 Type Value Full Term 2 Living 2 Total 2 Past Encounters Encounter ID Performer Location Encounter Start Date Encounter Closed Date Diagnosis/Indication Diagnosis SNOMED-CT Code Diagnosis ICD10 Code Diagnosis Note [id number] ANN [facility] [address] [address] 07/07/2020 11:09:29 07/07/2020 14:28:30 Gynecologic examination 92286698 Z01.419 Take Calcium with Vitamin D 12-1500mg daily. Do monthly self breast exams. It is advised to get annual flu shot in the fall and she could obtain at [facility] or [facility] care clinic. If you haven't received the [...] 1 year or PRN Menopausal syndrome 1237 11816 N95.1 -Patient states she has been experienci [...] sexual health specialist Dr. Kristina Zuniga @ [facility] who offers a free 15mins consultati [...] migraine w/ visual changes, breast cancer dx, OK/stroke, DVT/PE, Endometria l cancer. Please contact office with any new or worsening side effects or adverse reactions. Or if a medical emergency please go to nearest ED/[facility] care for further evaluation . Dyspareunia [id number] N94 .10 -Patient desires vaginal estrogen to help with dryness -Imvexxy prescripti on sent to patient pharmacy -RTC in 3 months to assess how this is going Counseled on medication R/B's, Most common side effects, & use. All questions were answered to patient satisfacti on. Call if not covered by insurance at reasonable ureña. [id number] Ryann Pat [facility] [address] [address] 07/11/2021 15:52:59 07/11/2021 16:33:22 Gynecologic examination 74359492 Z01.419 [id number] Odette Espana [facility] [address] [address] 12/18/2023 17:26:09 12/18/2023 18:35:52 Gynecologic examination 22301205 Z01.419 Take Calcium with Vitamin D 12-1500mg daily. Do monthly self breast exams. It is advised to get annual flu shot in the fall and she could obtain at [facility] or [facility] take care clinic. If you haven't received the [...] PCPHRT care provided elsewhere. Screening mammography 24 227201 Z12.31 [id number] Fox Marquez MD [facility] [address] [address] 12/21/2024 16:34:36 12/21/2024 17:11:59 Well woman health examination 186365776 Z01.419 Annual gynecologi avery exam performed. Patient will come back in a year unless there are new symptoms. Suggest Calcium with Vitamin D if not eating in diet. Patient advised to get annual flu shot. Recommend yearly physicals and perform monthly breast exams. Genetic testing is available for patients with family history of cancer. Engage in safe sexual practices, use condoms. Encouraged to have daily exercise. Avoid tobacco and illicit drugs, moderation of alcohol. If BMI greater than 25 dietary consult advised. If you have any questions please call or email. mammogram- order given, pt to schedule colon cancer screening - UTD PCP DEXA scan- n/a Pap smear- UTD (2023 - WN), will repeat in 2026 per ASCCP guidelines laboratory evaluation - PCP STI testing - declined Patient using compounded estradiol, testostero ne, and progestero ne from hormone clinic in [facility]. Screening mammography 24 109883 Z12.31 Health Concerns Section Related Observation LastModified by Organization Detai ls LastModified Time None Recorded Concern Status LastModified by Organization Details LastModified Time None Recorded Advance Directives Directive None Recorded Payers Insurance Date Sequence Insurance Name Policy Number Policy Kumar Covered Member ID Kumar Member ID Guarantor Name 12/15/2023 1 [employer] Crispin Ellis [id number] 12/18/2024 1 [place] [id number] Crispin Ellis [id number] Notes Date Note Type Note Provider Name and Address Organization Details Recorded Time 07/07/2020 text/html Annual GYNReport ed bypatient.Menstrua l cycle:Patient has not had a menstrual period for 1.5 years Urinary symptoms:No hematuria; No incontinence Vulva:No genital lesion Vagina:Vaginal dryness Breast:No breast pain; No breast lump; No nipple discharge Current Contraception:[place] gamous relationship Sexual complaints:Sexual complaints;Pain during intercourse;Decrea sed libido Menopausal Symptoms:Hot flashes;Inadequacy of lubrication of vaginal mucosa;Insomnia due to night sweats Psychological symptoms:No depression; No anxiety; No PMDD Preventive measures:Encourage self breast examination; Encourage regular exercise; Encourage no tobacco use; Encourage regular mammograms starting age 40 Odette Espana [facility]- [address], [place], [address], [facility] 07/07/2020 13:04:26 07/11/2021 text/html Annual GYNReport [...] dx of osteoarthritis, had not had dexa Ryann Pat CNM [address], [place], [address], [facility] 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 Patient denies concerns today. RATURO PHILLIPS NP [address], [place], [address], [facility] 12/21/2024 17:06:11 OBGyn Episode Ob Episode Information Episode Created Date Number of Fetuses Patient Bloodtype Patient rh Status Prepregnancy Weight lbs Domestic Partner Domestic Partner Phone Father Name Benefits Specialist Recruiter Status 07/11/20 21 1 CLOSED Fetus Data First Name Last Name Admitted to NICU Weight (g) Sex Living Outcome Pediatric Complications Fetus ID Race Codes Race Delivery Type 4309.12 4 M Full Term [id number] Vaginal Delivery Alex Calculation Initial Alex Date [...] Domestic Partner Domestic Partner Phone Father Name Benefits Specialist Recruiter Status 07/11/20 21 1 CLOSED Fetus Data First Name Last Name Admitted to NICU Weight (g) Sex Living Outcome Pediatric Complications Fetus ID Race Codes Race Delivery Type 3345.24 1 F Full Term [id number] Primary Alex Calculation Initial Alex Date Initial [...]
--- NOTE | 2025-03-03 10:00 | ECG_ITS ---
Test Date: 2025-03-03 10:11:31 Measurements Intervals [place] Rate: 68 P: 46 OR: 169 QRS: 24 QRSD: 85 T: 29 QT: 366 QTc: 389 Interpretive Statements SINUS RHYTHM No previous ECG available for comparison Electronically Signed On 03-03-2025 14:45:23 CDT by Toney Bishop M.D.
[2025-03-03 10:24] LABS: Hematocrit 42.0 % (37.0-47.0); Hemoglobin 13.8 g/dL (12.0-15.0)
== END 2025-03-03 09:45 | disposition home or self-care (01) ==
PROVIDERS: PCP Family Medicine; Visit Provider Anesthesiology
DX: Z41.1 Encounter for cosmetic surgery (principal)
CPT/HCPCS: 36415; 85014; 85018; 93005

== ENCOUNTER 2025-03-08 00:37 | Day surgery (SDC) | payer OTHER, SELFPAY ==
[2025-03-02 09:57] VITALS: BMI 22.4
--- NOTE | 2025-03-02 10:04 | PC.NURSE ---
Report to the Outpatient Waiting Room, entrance under the green pavilion located off [facility], at time _0600_ on date _[id number]_. Planned Procedure Time: _0730_.? Time changes happen often and if your time is changed the preop area will call you the afternoon before. - You and your visitor will be asked to self-screen and do not enter if you have any COVID symptoms. Please call surgeon if you need to reschedule. - A mask is optional within the hospital at this time. Patients may have clear liquids (water, carbonated beverages, clear teas, apple juice) until 3 hours prior to surgery with a maximum of 20 ounces. - No food from midnight until time of surgery and no smoking, or chewing tobacco (or any form of nicotine). No chewing gum, candy or mints. Take only the following medications with a SIP of water on the morning of surgery: ___Thyroid medication____ DO NOT STOP ANY OF YOUR OTHER PRESCRIPTION MEDICATIONS PRIOR TO SURGERY EXCEPT THE FOLLOWING Hold all vitamins and supplements for 3 days per anesthesiologist. Medications to discontinue per physician __Meloxicam per Dr Banks. Date to take last dose Please no make-up, nail congolese, hairspray, perfume, deodorant, or body powder the day of surgery.? No jewelry (including any body piercings) or valuables the day of surgery, leave them at home.? Please take a shower or bath the night before, or the morning of, surgery with an antibacterial soap.? Wear comfortable, loose fitting clothing.? - Jewelry must be removed prior to entering the operating room.? Rings and piercings that are not removed may be cut off. - The hospital will not accept responsibility for valuables.? - Please leave all valuables, including medications, at home the day of surgery. If you are going home after surgery, a licensed dump truck driver must drive you home.? - NO public transportation without another adult if you receive anesthesia. - We recommend that an adult stay with you for 24 hours following discharge. - We also recommend that you do not drive, make important decision, drink alcoholic beverages, or take any drugs that were not prescribed by your health care provider for at least 24 hours after your discharge time. Follow any additional instructions given to you from your surgeon. Telephone instructions given to __Bev___and asked if any additional questions and then verbalized understanding. Patient advised to call surgeon office or pre surgery nurse liaison [phone] if any additional questions.
[2025-03-08] VITALS (14 sets, daily range): BP systolic 104–154; BP diastolic 64–92; PULSE 77–91; RESP 12–83; TEMP 36.6–36.7; O2SAT 93–100
--- OUTSIDE RECORDS SUMMARY | 2025-03-08 00:42 | XMS_ITS | Clinical Summary ---
Author Organization [facility] Address [address] [place] [address] Phone Care Team Providers Care Veterans Rehabilitation Counselor Name Role Phone Unavailable Primary Care Provider [...]
--- OUTSIDE RECORDS SUMMARY | 2025-03-08 00:42 | XMS_ITS | Encounter Summary ---
Author Organization [facility] Healthcare Address [address] [place] [address] Care Team Providers Care Automobile Parts Assembler Name Role Phone Unavailable Primary Care Provider Unavailabl e Reason for Visit * Diagnostic Imaging (Routine) - Closed Specialty Diagnoses / Procedures Referred By Keke t Referred To Contact Procedures Breast Imaging Screening Outside Reference Sunil Meléndez NP Phone: tel: fax: Referral ID Status Reason Start Date Expiration Date Visits Re quested Visits Authorized [id number] Closed 11/29/2022 12/29/2023 1 1 Encounter Details Date Type Department Care Team (Late st Contact Info) Description 07/06/2020 Hospital Encounter [facility] [address] [place] [id number] Social History Tobacco Use Types Packs/Day Years Used Date Smoking Tobacco: Former Cigarettes Q uit: 1992 Smokeless Tobacco: Former Comments Unknown Sex and Gender Information Value Date Recorded Sex Assigned at Not on file 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 Gender Identity Not on file Sexual Orientation Not on file documented as of this encounter Plan of Treatment Not on file documented as of this encounter Procedures Procedure Name Priority Date/Time Associated Diagnosis Comments BREAST IMAGING MG SCREENING OUTSIDE REFERENCE Routine 07/06/2020 12:00 AM HOTBED TRANSFER OPERATOR documented in this encounter Results * Breast Imaging Screening Outside Reference (07/06/2020 12:00 AM HOTBED TRANSFER OPERATOR) Impressions RAD_MAMMO_[facility] - 11/29/2022 11:32 AM CDT These images are for Reference purposes only and have not been reviewed by [facility]iology. There will be no report generated by a [facility] Radiologist. Narrative [facility]_MAMMO_[facility] - 11/29/2022 11:32 AM CDT EXAMINATION: Images For Reference Purposes Only us Sunil Meléndez NP IMG MAMMO PROCEDURES Final Result [facility]MAMMO[facility] documented in this encounter Visit Diagnoses Not on filedocumented in this encounter
--- OUTSIDE RECORDS SUMMARY | 2025-03-08 00:42 | XMS_ITS | Clinical Summary ---
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
--- OUTSIDE RECORDS SUMMARY | 2025-03-08 00:42 | XMS_ITS | Referral Summary ---
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
--- OUTSIDE RECORDS SUMMARY | 2025-03-08 00:42 | XMS_ITS | Encounter Summary ---
Author Organization [facility] Healthcare Address [address] [place] [address] Care Team Providers Care Valuation Manager Name Role Phone Unavailable Primary Care Provider Unavailabl e Reason for Visit * Diagnostic Imaging (Routine) - Closed Specialty Diagnoses / Procedures Referred By Keke t Referred To Contact Procedures Breast Imaging Screening Outside Reference Sunil Meléndez NP Phone: tel: fax: Referral ID Status Reason Start Date Expiration Date Visits Re quested Visits Authorized [id number] Closed 11/29/2022 12/29/2023 1 1 Encounter Details Date Type Department Care Team (Late st Contact Info) Description 03/12/2019 Hospital Encounter [facility]iology [facility] [address] [place] [id number] Social History Tobacco Use Types Packs/Day Years Used Date Smoking Tobacco: Former Cigarettes Q uit: 1992 Smokeless Tobacco: Former Comments Unknown Sex and Gender Information Value Date Recorded Sex Assigned at Not on file 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 There will be no report generated by a [facility] Radiologist. Narrative RAD_MAMMO[facility] - 11/29/2022 11:32 AM CDT EXAMINATION: Images For Reference Purposes Only us Sunil Meléndez NP IMG MAMMO PROCEDURES Final Result [facility]MO[facility] documented in this encounter Visit Diagnoses Not on filedocumented in this encounter
--- OUTSIDE RECORDS SUMMARY | 2025-03-08 00:42 | XMS_ITS | Continuity of Care Document ---
[facility] Address [address] [place] [address] Phone Care Team Providers Care Gis Software Developer Name Role Phone Joey PT,MPT,ATC, Dakn Unavailable Unavai lable Procedures Procedure Date PT Evaluation Moderate Complexity Therapeutic Activities Neuromuscular Re-Ed Therapeutic Exercise Advance Directives Directive Yes / No Effective Date File Name No Information Encounters Encounter Description Practice Location Reason(s) For Visit Diagnoses Date Provider Providers Copied on Encounter [facility], [address], [place], [place], [id number], tel:[phone] [place] No Information Joey [place] , [place], [place]. Referring Provider: Radu Hoskins, [address], [place], [address]. tel:[phone] Family History Family Member Type Diagnosis Age At Onset No Information Payers Payer name Insurance type Covered green party ID Authoriza tidawood(s) [employer] [facility] [id number] Social History Type Description Quantity Date Captured [...]
--- OUTSIDE RECORDS SUMMARY | 2025-03-08 00:43 | XMS_ITS | Data Portability ---
Author Organization [facility] Address [address] [place] [address] Care Team Providers Care Paraprofessional Education Assistant Name Role Phone KEVIN BRUNER Primary Care Provider [phone] Assessment Encounter Date Assessment Date Assessment LastModified [...] a year unless there are new symptoms. [email or web address] Not available 12/21/2024 16:36:27 Plan of Treatment Reminders Order Date Submit Date Provider Last Modified By Organization Details Last Modified Time Details Appointments None recorded. Lab lh + FSH, serum 2019 020 [email or web address] [facility] ([facility]), [address] , [address], [place], [address], 0 09:10:55 CBC w/ auto diff 2019 020 [email or web address] [facility] ([facility]), [address] [facility] [address] , [address], [place], [address], 0 09:10:55 CMP, serum or plasma 2019 020 [email or web address] [facility] ([facility]), [address] [facility] [address] , [address], [place], [address], 0 09:10:55 TSH, serum or plasma 2019 020 [email or web address] [facility] ([facility]), [address] [facility] [facility] [address] , [address], [place], [address], 0 09:10:55 testostero ne, free + total, serum 2019 020 [email or web address] [facility] ([facility]), [address] , [address], [place], [address], 0 09:10:56 testostero ne, total, serum 2019 020 [email or web address] [facility] ([facility]), [address] , [address], [place], [address], 0 09:10:56 Referral None recorded. Procedures None recorded. Surgeries None recorded. Imaging MAMMO, screening, digital, bilateral 2024 025 [facility], [address], [address], [place], [address], 5 08:11:18 MAMMO, screening, bilateral 2023 024 DION[facility] Not available 4 07:16:29 Medication Orders Imvexxy Starter Pack 4 mcg vaginal insert, dose pack 2019 020 [email or web address] 1 [id number], [address], [place], [place], [id number], 1 16:17:00 Patient TargetsNo targets recorded. Patient [...] as clini merari yee nted. Not Available [facility]) [address], [place], [address], 07/20/2021 21:10:27 12/19/19 22 12/18/2021 CBC W/DIF F WBC 6.9 10'3/ uL 3.6-10 .2 Not Available [facility] ([facility]) [address] , [place], [address], 12/19/2021 09:32:09 12/19/19 22 12/18/2021 CBC W/DIF F RBC 4.90 10'6/ uL (based on docume nted legal sex) 4.10-5 .30 Not Available [facility] ([facility]) [address], [place], [address], 12/19/2021 09:32:09 12/19/19 22 12/18/2021 CBC W/DIF F HGB 14.6 g/dL (based on docume nted legal sex) 11.9-1 5.8 Not Available [facility] ([facility]) [address], [place], [address], 12/19/2021 09:32:09 12/19/19 22 12/18/2021 CBC W/DIF F HCT 44.8 % (based on docume nted legal sex) 37.4-4 8.3 Not Available [facility] ([facility]) [address], [place], [address], 12/19/2021 09:32:09 12/19/19 22 12/18/2021 CBC W/DIF F MCV 92.0 fL 82.0-9 9.0 Not Available [facility] ([facility]) [address] , [place], [address], 12/19/2021 09:32:09 12/19/19 22 12/18/2021 CBC W/DIF F MCH 30.0 pg 27.0-3 3.0 Not Available [facility] ([facility]) [address] [facility], [place], [address], 12/19/2021 09:32:09 12/19/19 22 12/18/2021 CBC W/DIF F MCHC 33.0 g/dL 32.0-3 6.0 Not Available [facility] ([facility]) [address] [facility], [place], [address], 12/19/2021 09:32:09 12/19/19 22 12/18/2021 CBC W/DIF F RDW 12.0 % 11.0-1 5.0 Not Available [facility] ([facility]) [address] [facility], [place], [address], 12/19/2021 09:32:09 12/19/19 22 12/18/2021 CBC W/DIF F plt 277 10'3/ uL 150-45 0 Not Available [facility] ([facility]) [address] [facility], [place], [address], 12/19/2021 09:32:09 12/19/19 22 12/18/2021 CBC W/DIF F MPV 10.3 fL 9.8-12 .7 Not Available [facility] ([facility]) [address] [facility], [place], [address], 12/19/2021 09:32:09 12/19/19 22 12/18/2021 CBC W/DIF F NRBC's 0.00 % 0 Not Available [facility] ([facility]) [address] [facility], [place], [address], 12/19/2021 09:32:09 12/19/19 22 12/18/2021 CBC W/DIF F absolute NRBCs 0.0 10'3/ uL 0 Not Available [facility] ([facility]) [address] [facility], [place], [address], 12/19/2021 09:32:09 12/19/19 22 12/18/2021 CBC W/DIF F neutrophils 62.0 % 37.0-7 2.0 Not Available [facility] ([facility]) [address] [facility], [place], [address], 12/19/2021 09:32:09 12/19/19 22 12/18/2021 CBC W/DIF F lymphocytes 29.0 % 16.0-4 8.0 Not Available [facility] ([facility]) [address] [facility], [place], [address], 12/19/2021 09:32:09 12/19/19 22 12/18/2021 CBC W/DIF F monocytes 8.0 % 4.0-14 .0 Not Available [facility] ([facility]) [address] [facility], [place], [address], 12/19/2021 09:32:09 12/19/19 22 12/18/2021 CBC W/DIF F eosinophils 1.0 % 0.0-9. 0 Not Available [facility] ([facility]) [address] [facility], [place], [address], 12/19/2021 09:32:09 12/19/19 22 12/18/2021 CBC W/DIF F basophils 0.0 % 0.0-2. 0 Not Available [facility] ([facility]) [address] [facility], [place], [address], 12/19/2021 09:32:09 12/19/19 22 12/18/2021 CBC W/DIF F immature granulocytes 0.0 % no define d refere nce range Not Available [facility] ([facility]) [address] [facility], [place], [address], 12/19/2021 09:32:09 12/19/19 22 12/18/2021 CBC W/DIF F absolute neutrophils 4.2 10'3/ uL 1.1-6. 0 Not Available [facility] ([facility]) [address] [facility], [place], [address], 12/19/2021 09:32:09 12/19/19 22 12/18/2021 CBC W/DIF F absolute lymphocytes 2.0 10'3/ uL 0.7-3. 4 Not Available [facility] ([facility]) [address] [place], [address], 12/19/2021 09:32:09 12/19/19 22 12/18/2021 CBC W/DIF F absolute monocytes 0.5 10'3/ uL 0.3-1. 0 Not Available [facility] ([facility]) [address] [facility], [place], [address], 12/19/2021 09:32:09 12/19/19 22 12/18/2021 CBC W/DIF F absolute eosinophils 0.1 10'3/ uL 0.0-0. 6 Not Available [facility] ([facility]) [address] [facility], [place], [address], 12/19/2021 09:32:09 12/19/19 22 12/18/2021 CBC W/DIF F absolute basophils 0.0 10'3/ uL 0.0-0. 1 Not Available [facility] ([facility]) [address] [facility], [place], [address], 12/19/2021 09:32:09 12/19/19 22 12/18/2021 CBC W/DIF [...] resul ts are expec barbara. Not Available [facility] ([facility]) [address] [facility], [place], [address], 12/19/2021 09:32:09 12/19/19 22 12/18/2021 PHOSP HORUS phosphorus 4.2 mg/dL 2.5-5. 0 Not Available [facility] ([facility]) [address] [facility], [place], [address], 12/19/2021 09:32:10 12/19/19 22 12/18/2021 CMP(C OMPRE HENSI VE METAB OLIC PANEL ) sodium 142 mmol/ L 133-14 6 Not Available [facility] ([facility]) [address] [facility], [place], [address], 12/19/2021 09:32:11 12/19/19 22 12/18/2021 CMP(C OMPRE HENSI VE METAB OLIC PANEL ) potassium 3.9 mmol/ L 3.5-5. 1 Not Available [facility] ([facility]) [address] [facility], [place], [address], 12/19/2021 09:32:11 12/19/19 22 12/18/2021 CMP(C OMPRE HENSI VE METAB OLIC PANEL ) chloride 105 mmol/ L 98-107 Not Available [facility] ([facility]) [address] [facility], [place], [address], 12/19/2021 09:32:11 12/19/19 22 12/18/2021 CMP(C OMPRE HENSI VE METAB OLIC PANEL ) carbon dioxide 27 mmol/ L 21-31 Not Available [facility] ([facility]) [address] [facility], [place], [address], 12/19/2021 09:32:11 12/19/19 22 12/18/2021 CMP(C OMPRE HENSI VE METAB OLIC PANEL ) anion gap 10 mmol/ L 4-13 Not Available [facility] ([facility]) [address] [facility], [place], [address], 12/19/2021 09:32:11 12/19/19 22 12/18/2021 CMP(C OMPRE HENSI VE METAB OLIC PANEL ) blood urea nitrogen 20 mg/dL 7-25 Not Available [facility] (Lab) [address] [facility], [place], [address], 12/19/2021 09:32:11 12/19/19 22 12/18/2021 CMP(C OMPRE HENSI VE METAB OLIC PANEL ) creatinine 0.80 mg/dL 0.60-1 .30 Not Available [facility]) [address] [facility], [place], [address], 12/19/2021 09:32:11 12/19/19 22 12/18/2021 CMP(C OMPRE HENSI VE METAB OLIC PANEL ) egfrcr (CKD-epi 2020) 87 mL/mi n/1.7 3_m2 >=60 Not Available [facility] ([facility]) [address], [place], [address], 12/19/2021 09:32:11 12/19/19 22 12/18/2021 CMP(C OMPRE HENSI VE METAB OLIC PANEL ) calcium 10.1 mg/dL 8.3-10 .5 Not Available [facility] ([facility]) [address], [place], [address], 12/19/2021 09:32:11 12/19/19 22 12/18/2021 CMP(C OMPRE HENSI VE METAB OLIC PANEL ) glucose 85 mg/dL 70-100 Not Available [facility] ([facility]) [address], [place], [address], 12/19/2021 09:32:11 12/19/19 22 12/18/2021 CMP(C OMPRE HENSI VE METAB OLIC PANEL ) protein, total 6.7 g/dL 6.4-8. 3 Not Available [facility] ([facility]) [address] [facility], [place], [address], 12/19/2021 09:32:11 12/19/19 22 12/18/2021 CMP(C OMPRE HENSI VE METAB OLIC PANEL ) albumin 4.6 g/dL 3.5-5. 0 Not Available [facility] ([facility]) [address] [facility], [place], [address], 12/19/2021 09:32:11 12/19/19 22 12/18/2021 CMP(C OMPRE HENSI VE METAB OLIC PANEL ) ALT 18 units /L 9-43 Not Available [facility] ([facility]) [address] [facility], [place], [address], 12/19/2021 09:32:11 12/19/19 22 12/18/2021 CMP(C OMPRE HENSI VE METAB OLIC PANEL ) alkaline phosphatase 56 units /L 34-104 Not Available [facility] ([facility]) [address] [place], [address], 12/19/2021 09:32:11 12/19/19 22 12/18/2021 CMP(C OMPRE HENSI VE METAB OLIC PANEL ) AST 19 units /L 13-39 Not Available [facility] ([facility]) [address] [facility], [place], [address], 12/19/2021 09:32:11 12/19/19 22 12/18/2021 CMP(C OMPRE HENSI VE METAB OLIC PANEL ) bilirubin, total 0.5 mg/dL 0.2-1. 2 Not Available [facility] ([facility]) [address] [place], [address], 12/19/2021 09:32:11 12/19/19 22 12/18/2021 VITAM IN D, 25-OH (TOTA L D2/D3 ) vitamin D, 25-hydroxy, total 93.9 NG/mL 30-80 high NOTE: Defic iency : <20 ng/mL Insuf ficie ncy: 20-29 ng/mL Optim um Level : 30-80 ng/mL Possi ble Toxic ity: >80 ng/mL Most patie nts with toxic ity have level s >150 ng/mL . Not Available [facility] ([facility]) [address] [facility], [place], [address], 12/19/2021 09:32:12 12/19/19 22 12/18/2021 TSH, REFLE X FREE T4 TSH 0.01 uIU/m L 0.30-5 .33 low Not Available [facility] ([facility]) [address] [place], [address], 12/19/2021 09:32:13 12/19/19 22 12/18/2021 T4 FREE T4, free 2.29 NG/dL 0.60-1 .40 high Not Available [facility] ([facility]) [address], [place], [address], 12/19/2021 09:32:19 07/07/20 20 07/06/2020 MAMMO , scree joi, bilat eral No observ ation record ed. [address] [facility] [address], [place], [address], 12/18/2023 18:04:30 07/16/20 21 07/14/2021 MAMMO , scree joi, bilat eral No observ ation record ed. [address] [facility] [address], [place], [address], 12/18/2023 18:04:30 11/28/19 22 11/27/2021 DEXA, axial skele ton + verte bral fract ure asses sment No observ ation record ed. [address] [facility] [address], [place], [address], 12/18/2023 18:04:30 11/28/19 22 11/27/2021 DEXA, axial skele ton + verte bral fract ure asses sment No observ ation record ed. [address] [facility] [address], [place], [address], 12/18/2023 18:04:30 10/30/19 23 10/25/2022 MAMMO , scree joi, bilat eral No observ ation record ed. [address] [facility] [address], [place], [address], 12/18/2023 18:04:30 11/23/19 23 11/21/2022 MAMMO , diagn ostic , unila teral No observ ation record ed. [address] [facility] [address], [place], [address], 12/18/2023 18:04:30 01/07/20 23 11/21/2022 US, breas t, unila teral No observ ation record ed. [address] [facility] [address], [place], [address], 12/18/2023 18:04:30 01/07/20 23 11/21/2022 mammo gram, follo w up* No observ ation record ed. [address] [facility] [address], [place], [address], 12/18/2023 18:04:30 02/17/20 24 02/16/2024 MAMMO , scree joi, bilat eral No observ ation record ed. [facility] [address], [place], [address], 03/09/2024 04:07:32 02/23/20 25 02/21/2025 MAMMO , scree joi, digit al, bilat eral No observ ation record ed. [facility] [address], [place], [address], 02/22/2025 11:11:23 Result Notes None recorded. Problems Name Problem SNOMED Code Status Onset Date Resolution Date Notes Provider Name and Address Organization Details Recorded Time Breast lump 83548303 Completed 201307/11/2021 Breast Lump Or Mass;Rec orded Elsewher e: No Locat ion: Wes almazan [facility] [place] [facility] S ource: EHR Risk Management Professional shanna: N Practi ce ID: [id number] Ezio lable Time: 03:30:00 PM Jillian Rincon [place], [place] - [facility] 16:17:44 Screenin g for malignan t neoplasm of rectum Completed 201307/11/2021 Screenin g for malignan t neoplasm s of the rectum;R ecorded Elsewher e: No [facility]: N Varshati ce ID: 0001 Ezio lable Time: 03:30:00 PM Jillian briggs, [facility] 16:18:23 Screenin g for malignan t neoplasm of cervix Completed 201307/11/2021 Screenin g for malignan t neoplasm s of the cervix;R ecorded Elsewher e: No Locat ion: [facility]: N Varshati ce ID: 0001 Ezio lable Time: 03:30:00 PM Jillian Rincon [facility], [facility] 16:18:22 Pregnanc y test negative [id number] Completed 201307/11/2021 Pregnanc y examinat ion or test, negative result;R ecorded Elsewher e: No Locat ion: [facility] S ource: [facility] shanna: N Varshati ce ID: [id number] Ezio lable Time: 11:45:00 AM Jillian Rincon [facility] 16:18:18 Insertio n of intraute rine contrace ptive device Completed 201307/11/2021 INSERTIO N OF IUD;Avni rded Elsewher e: No Locat ion: [facility]: N Varshati ce ID: 0001 Ezio lable Time: 11:45:00 AM Jillian briggs, [facility] 16:18:03 Uses IUD (intraut erine device) contrace ption [id number] Completed 201307/11/2021 Surveill ance of IUD;Avni rded Elsewher e: No Locat ion: [facility]: N Varshati ce ID: 0001 Ezio lable Time: 08:45:00 AM Jillian Rincon [facility], [facility] 16:18:05 Urinary tract infectio us disease [id number] Completed 201307/11/2021 UTI;Avni rded Elsewher e: No Locat ion: Wes almazan [facility] [place] [facility] S ource: EHR Risk Management Professional shanna: N Varshati ce ID: [id number] Ezio lable Time: 11:00:00 AM Jillian Rincon brigitte, [facility] 16:18:34 Leukocyt osis [id number] Completed 201307/11/2021 LEUKOCYT OSIS NOS;Avni rded Elsewher e: No [facility] [place] [facility]: EHR Risk Management Professional shanna: N Varshati ce ID: [id number] Ezio lable Time: 11:00:00 AM Jillian Rincon brigitte [facility] 16:18:07 Mammogra phy abnormal [id number] Completed 201407/11/2021 Unspecif ied abnormal mammogra m;Record ed Elsewher e: No Locat ion: Wes almazan [facility] [place] [facility] S ource: E[employer] Risk Management Professional shanna: N Varshati ce ID: [id number] Ezio lable Time: 04:21:15 PM Jillian Rincon brigitte [facility] 16:18:10 Menstrua tion finding Completed 201407/11/2021 Excessiv e or frequent menstrua tion;Rec orded Elsewher e: No Locat ion: Wes almazan [facility] [place] [facility] S ource: E[employer] Risk Management Professional shanna: N Practi ce ID: [id number] Ezio lable Time: 04:00:00 PM Jillian Rincon brigitte [facility] 16:18:14 Malaise and fatigue [id number] Completed 201407/11/2021 Fatigue; Recorded Elsewher e: No Locat ion: Maiaisamar tha [facility] [place] [facility] S ource: EHR Risk Management Professional shanna: N Varshati ce ID: [id number] Ezio lable Time: 04:00:00 PM Jillian briggs [facility] 1 16:18:08 Removal of intraute rine device Completed 201407/11/2021 REMOVAL OF IUD;Avni rded Elsewher e: No Locat ion: Bindu tha [facility] [place] [facility] S ource: EHR Risk Management Professional shanna: N Practi ce ID: [id number] Ezio lable Time: 02:30:00 PM Jillian briggs, [facility] 1 16:18:20 Speciali zed medical examinat ion Completed 201407/11/2021 ROUTINE NURSE ADVOCATE EXAMINAT ION;Avni rded Elsewher e: No Locat ion: [facility] S ource: E[employer] Risk Management Professional shanna: N Practi ce ID: 0001 Ezio lable Time: 08:30:00 AM [facility] 16:18:29 Amenorrh ea [id number] Completed 201407/11/2021 Amenorrh ea;Recor ded Elsewher e: No Locat ion: [facility] S ource: E[employer] Risk Management Professional shanna: N Practi ce ID: [id number] Ezio lable Time: 08:30:00 AM Jillian Rincon brigitte, [facility] 16:17:24 Speciali zed medical examinat ion Completed 201407/11/2021 Other specifie d chlamydi al diseases ;Recorde d Elsewher e: No Locat ion: [facility] S ource: [employer] Risk Management Professional shanna: N Practi ce ID: 0001 Ezio lable Time: 08:30:00 AM Jillian Rincon brigitte [facility] 16:18:30 Venereal disease screenin g Completed 201407/11/2021 Screenin g examinat ion for venereal disease; Recorded Elsewher e: No Locat ion: [facility] S ource: [employer] Risk Management Professional shanna: N Practi ce ID: [id number] Ezio lable Time: 08:30:00 AM Jillian Rincon brigitte [facility] 16:18:35 Syphilis test finding [id number] Completed 201607/11/2021 Encntr screen for infectio ns w sexl mode of transmis s;Record ed Elsewher e: No [facility]: [facility] Risk Management Professional shanna: N Kirk ce ID: 0001 Ezio lable Time: 08:30:00 AM Jillian Rincon [facility], [facility] 16:18:32 Infectio n screenin g Completed 201607/11/2021 Encounte r for screenin g for oth infec/pa rastc diseases ;Recorde d Elsewher e: No Locat ion: [facility] S ource: EHR Risk Management Professional shanna: N Varshati ce ID: 0001 Ezio lable Time: 08:30:00 AM Jillian Rincon [facility] 16:18:01 Finding of menstrua l bleeding Completed 201607/11/2021 Excessiv e and frequent menstrua tion with regular cycle;Re corded Elsewher e: No Locat ion: [facility] S ource: EHR Risk Management Professional shanna: N Varshati ce ID: 0001 Ezio lable Time: 03:30:00 PM Jillian Rincon brigitte [facility] 16:17:[address] Concept Completed 201707/11/2021 Encntr for urogynaecologist exam (general ) (routine ) w/o abn findings ;Recorde d Elsewher e: No Locat ion: [facility] S ource: E[employer] Risk Management Professional shanna: N Varshati ce ID: 0001 Ezio lable Time: 08:30:00 AM Jillian Rincon brigitte [facility] 16:18:[address] Concept Completed 201707/11/2021 Encntr for general adult medical exam w/o abnormal findings ;Recorde d Elsewher e: No Locat ion: Maiajesse tha [facility] [place] [facility] S ource: EHR Risk Management Professional shanna: N Kirk ce ID: 0001 Ezio lable Time: 08:30:00 AM Jillian briggs [facility] 16:18:26 Disorder of perineum Completed 201807/11/2021 Condylom a acuminat um;Recor ded Elsewher e: No Locat ion: Maiajesse tha [facility] [place] [facility]: N Varshati ce ID: 0001 Ezio lable Time: 09:30:00 AM Jillian briggs [facility] 16:17:59 Menopaus e present [id number] Completed 201807/11/2021 Symptoms such as flushing , sleeples sness, headache , lack of concentr ation, associat ed with natural (age-rel ated) menopaus e;Record ed Elsewher e: No Locat ion: Bindu tha [facility] [place] [facility] sh[facility]: N Varshati ce ID: 0001 Ezio lable Time: 11:30:00 AM Jillian briggs [facility] 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 16:18:16 Problem Notes None recorded. Procedures Surgical History Date Name Laterality Status Provider Name and Address Organization Details Recorded Time 02/16/20 Date of Last Mammogram completed [facility] 12/21/2024 16:37:36 12/18/19 Date of [facility] 12/21/2024 16:37:22 08/01/20 17 Colposcopy completed [facility] 07/11/2021 18:23:13 08/01/20 17 Colposcopy completed [facility] 07/11/2021 19:58:59 07/18/20 17 Hysteroscopy completed [facility] 07/11/2021 18:30:04 04/21/19 87 section completed [facility] 07/11/2021 18:28:29 Imaging Results None recorded. Procedure Notes None recorded. Medical Equipment None Reported. Allergies Allergen ID Allergen Name Allergen Category Reaction Reaction Severity Criticality Documentation Date Start Date Code Code System Note Provider Name and Address Organization Details Recorded Time 08768 latex environme nt,medica tion Not available Not available Not available 08/04/2020 97678 91 RxNorm React ion: Pruri tic rash; Comme nt: [facility]; Not Available [facility] 0 14:14:50 71650 azithromy lopez medicatio n Not available Not available Not available 08/04/2020 13105 RxNorm Comme nt: [facility] Cau sativ e Agent : Zithr omax; Not Available [facility] 0 14:14:50 Medications Name Sig Start Date Stop Date Status Note LastModified by Organization Details LastModified Time Prometriu m 200 mg capsule take 1 capsule by oral route every day for 12 day at bedtime. 03/03 completed Prescrib darian Valencia e: No [facility] [place] [facility] odify By: cade canseco DateTime : 02/23/20 15 05:48:11 PM Not Available Not Available Not Available [place] Thyroid 60 mg tablet TAKE 1 TABLET [...] e: Yes Loca tion: Wes almazan [facility] odify By: aislinn Almazan ncounter DateTime : 06/13/20 17 03:30:00 PM Not Available Not Available Not Available Provera 5 mg tablet take 1 tablet by oral route every day 07/11 completed Prescrib ed Elsewher e: No Locat ion: Wes almazan [facility] odify By: lam Tony nter DateTime [...] e: No Locat ion: Wes almazan [facility] odify By: aislinn Almazan ncounter DateTime : 07/25/20 17 07:32:17 AM Not Available Not Available Not Available meloxicam 7.5 mg tablet TAKE 1 TABLET BY MOUTH ONCE DAILY 12/21 completed Not Available Not Available Not Available estradiol 1 mg tablet take 1 tablet by oral route every day 07/11 completed Prescrib ed Elsewher e: No Locat ion: Wes almazan [facility] odify By: lam Tony nter DateTime [...] completed Not Available Not Available Not Available [place] Thyroid 30 mg tablet TAKE 1 TABLET BY MOUTH EVERY AFTERNOO N 07/11 completed Not Available Not Available Not Available gabapenti n 100 mg capsule TAKE 1 CAPSULE BY MOUTH AT BEDTIME 12/21 completed Not Available Not Available Not Available diazepam 10 mg tablet take 10mg P 1 hour before the procedur e 08/08 completed Prescrib ed Elsewher e: No Locat ion: [facility] odify By: ammisti gayleunter DateTime : 07/25/20 17 07:32:17 AM Not Available Not Available Not Available methylpre dnisolone 4 mg tablets in a dose pack TAKE BY MOUTH DIRECTED ON INSIDE OF PACKAGE 12/17 completed Not Available Not Available Not Available [place] 5 mg-325 mg tablet take 2 tablets PO 2 hours before the procedur e 08/08 completed Prescrib ed Elsewher e: No Locat ion: [facility] odify By: ammisti gayleunter DateTime : 07/25/20 [...] Prescrib ed Elsewher e: No Locat ion: [facility] odify By: ammisti Almazan ncounter DateTime : 07/12/20 14 11:00:00 AM Not Available Not Available Not Available Estrogeni c Substance 5 mg/mL intramusc ular suspensio n Inject by intramus cular route. 12/21 completed Not Available Not Available Not Available Calcium-5 00 500 mg (as calcium carbonate 1,250 mg) tablet active Prescrib ed Elsewher e: Yes Loca tion: Wes almazan [facility] odify By: aislinn canseco DateTime : 11/30/19 15 04:00:00 PM Not Available Not Available Not Available Evening [place] 500 mg capsule 12/17 completed Prescrib ed Elsewher e: Yes Loca tion: Wes almazan [facility] odify By: aislinn canseco DateTime : 11/30/19 15 04:00:00 PM Not Available Not Available Not Available [place] 0.35 mg tablet take 1 tablet by oral route every day 11/29 completed Prescrib ed Elsewher e: No Locat ion: Wes almazan [facility] odify By: aislinn canseco DateTime : [...] e: Yes Loca tion: Wes almazan [facility] odify By: anais hodges DateTime : 01/27/20 14 03:30:00 PM Not Available Not Available Not Available biotin 1 mg capsule active Prescrib ed Elsewher e: Yes Loca tion: Wes almazan [facility] odify By: aislinn canseco DateTime : [...] Updated DateTime 12/18/2023 122/80 mm[Hg] Odette Espana, [facility]- [address], [place], [address], [facility] 12/18/2023 18:04:28 Date Recorded Body height Body mass index (BMI) Body weight Provider Name and Address Organization Details Last Updated DateTime 12/18/2023 155.58 cm 22.3 kg/m2 78038.49 g Adwoa Herndon [facility] 12/18/2023 17:32:51 Date Recorded Body height Body mass index (BMI) Body weight Systolic And Diastolic Provider Name and Address Organization Details Last Updated DateTime 12/21/2024 155.58 cm 23 kg/m2 02743.14 g 128/82 mm[Hg] Sheron Angulo [facility] 12/21/2024 16:47:51 Date Recorded Body height Body mass index (BMI) Body weight Systolic And Diastolic Provider Name and Address Organization Details Last Updated DateTime 07/07/2020 157.48 cm 23.4 kg/m2 83414.82 g 129/82 mm[Hg] Rika Russell [facility] 07/07/2020 11:23:35 Date Recorded Body height Body mass index (BMI) Body weight Systolic And Diastolic Provider Name and Address Organization Details Last Updated DateTime 07/11/2021 155.58 cm 23.4 kg/m2 82774.05 g 133/85 mm[Hg] Jillian Rincon [facility] 07/11/2021 16:16:12 Social History Question Answer Notes LastModified by Organizat ion Details LastModified Time Tobacco Smoking Status Former Smoker Jillian Rincon [facility], [facility] 07/11/2021 18:27:57 Are You Blind Or Do You Have Difficulty Seeing? No [email or web address] Information not available 07/11/2021 What Is Your Level Of Caffeine Consumption? Occasional [email or web address] Information not available 07/11/2021 In The 14 Days Before Symptom Onset, Have You Had Close Contact With A Laboratory-confir med COVID-19 While That Case Was Ill? No [email or web address] Information not available 07/11/2021 In The 14 Days Before Symptom Onset, Have You Had Close Contact With A Person Who Is Under Investigation For COVID-19 While That Person Was Ill? No [email or web address] Information not available 07/11/2021 Have You Been To An Area Known To Be High Risk For COVID-19? No [email or web address] Information not available 07/11/2021 Are You Deaf Or Do You Have Serious Difficulty Hearing? No [email or web address] Information not available 07/11/2021 What Type Of Diet Are You Following? REGULAR Information not available 07/11/2021 Have You Ever Been Counseled For Unhealthy Alcohol Use? No Information not available 07/11/2021 Do You Use Your Seat Belt Or Car Seat Routinely? Yes [email or web address] Information not available 07/11/2021 Do You Have Smoke And Carbon Monoxide Detectors In Your Home? Yes [email or web address] Information not available 07/11/2021 Do You Use Sunscreen Routinely? Yes [email or web address] Information not available 07/11/2021 Has Tobacco Cessation Counseling Been Provided? No [email or web address] Information not available 07/11/2021 Sex: Unknown Functional Status Question Answer Note LastModified by Organizat ion Details LastModified Time Do you use any illicit or recreational drugs? No [email or web address] Information not available 07/11/2021 Do you or have you ever used any other forms of tobacco or nicotine? No [email or web address] Information not available 07/11/2021 What is your level of alcohol consumption? Occasional Information not available 07/11/2021 Are you able to walk? YESWOREST Information not available 07/11/2021 What is your exercise level? Occasional [email or web address] Information not available 07/11/2021 Mental Status Question Answer Note LastModified by Organization D etails LastModified Time Do you feel stressed (tense, restless, nervous, or anxious, or unable to sleep at night)? [id number] [email or web address] Information not available 07/11/2021 Family History Relationship Description Onset Age of this Age Resolved Age Notes LastModified by Organization Details LastModified Time Father Heart disease Not available 07/11 18:26:38 Father Congestive heart failure Not available 07/11 18:27:00 Father Diabetes mellitus Not available 07/11 18:27:08 Father Malignant tumor of colon 63 Not available 07/11 19:50:23 Brother Heart disease [email or web address] Not available 07/11 18:26:38 Brother Congestive heart failure Not available 07/11 18:27:00 Medical History Condition [...] SNOMED-CT Code Diagnosis ICD10 Code Diagnosis Note [id number] ANN Contreras[facility] [address] [address] 07/07/2020 11:09:29 07/07/2020 14:28:30 Gynecologic examination [id number] Z01.419 Take Calcium with Vitamin D 12-1500mg daily. Do monthly self breast exams. It is advised to get annual flu shot in the fall and she could obtain at [facility] or [facility] care clinic. If you haven't received the [...] 1 year or PRN Menopausal syndrome [id number] N95.1 -Patient states she has been experienci [...] sexual health specialist Dr. Kristina Zuniga @ [facility] who offers a free 15mins consultati [...] migraine w/ visual changes, breast cancer dx, MO/stroke, DVT/PE, Endometria l cancer. Please contact office with any new or worsening side effects or adverse reactions. Or if a medical emergency please go to nearest ED/[facility] care for further evaluation . Dyspareunia [id number] N94 .10 -Patient desires vaginal estrogen to help with dryness -Imvexxy prescripti on sent to patient pharmacy -RTC in 3 months to assess how this is going Counseled on medication R/B's, Most common side effects, & use. All questions were answered to patient satisfacti on. Call if not covered by insurance at reasonable ureña. [id number] Ryann Pat [facility] [address] [address] 07/11/2021 15:52:59 07/11/2021 16:33:22 Gynecologic examination [id number] Z01.419 [id number] [facility] [address] [address] 12/18/2023 17:26:09 12/18/2023 18:35:52 Gynecologic examination [id number] Z01.419 Take Calcium with Vitamin D 12-1500mg daily. Do monthly self breast exams. It is advised to get annual flu shot in the fall and she could obtain at [facility] or [facility] take care clinic. If you [...] PCPHRT care provided elsewhere. Screening mammography 24 696793 Z12.31 [id number] Fox Marquez MD Jacob [address] [address] 12/21/2024 16:34:36 12/21/2024 17:11:59 Well woman health examination [id number] Z01.419 Annual gynecologi avery exam performed. Patient [...] and progestero ne from hormone clinic in [facility]. Screening mammography 24 144332 Z12.31 Health Concerns Section Related Observation LastModified by Organization Detai ls LastModified Time None Recorded Concern Status LastModified by Organization Details LastModified Time None Recorded Advance Directives Directive None Recorded Payers Insurance Date Sequence Insurance Name Policy Number Policy Kumar Covered Member ID Kumar Member ID Guarantor Name 12/15/2023 1 [employer] Crispin Ellis [id number] 12/18/2024 1 [place] [id number] Crispin Ellis [id number] Notes Date Note Type Note Provider Name and Address Organization Details Recorded Time 07/07/2020 text/html Annual GYNReport ed bypatient.Menstrua l cycle:Patient has not had a menstrual period for 1.5 years Urinary symptoms:No hematuria; No incontinence Vulva:No genital lesion Vagina:Vaginal dryness Breast:No breast pain; No breast lump; No nipple discharge Current Contraception:Young gamous relationship Sexual complaints:Sexual complaints;Pain during intercourse;Decrea sed libido Menopausal Symptoms:Hot flashes;Inadequacy of lubrication of vaginal mucosa;Insomnia due to night sweats Psychological symptoms:No depression; No anxiety; No PMDD Preventive measures:Encourage self breast examination; Encourage regular exercise; Encourage no tobacco use; Encourage regular mammograms starting age 40 Odette Espana LU[facility]- [address], [place], [address], [facility] 07/07/2020 13:04:26 07/11/2021 text/html Annual [...] dexa Ryann Pat CNM [address], [place], [address], [facility] 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 Patient denies concerns today. ARTURO PHILLIPS NP [address], [place], [address], [facility] 12/21/2024 17:06:11 OBGyn Episode Ob Episode Information Episode Created Date Number of Fetuses Patient Bloodtype Patient rh Status Prepregnancy Weight lbs Domestic Partner Domestic Partner Phone Father Name Water Safety Instructor Status 07/11/20 21 1 CLOSED Fetus Data First Name Last Name Admitted to NICU Weight (g) Sex Living Outcome Pediatric Complications Fetus ID Race Codes Race Delivery Type 4309.12 4 M Full Term [id number] Vaginal Delivery Alex Calculation Initial Alex Date [...] Domestic Partner Domestic Partner Phone Father Name Water Safety Instructor Status 07/11/20 21 1 CLOSED Fetus Data First Name Last Name Admitted to NICU Weight (g) Sex Living Outcome Pediatric Complications Fetus ID Race Codes Race Delivery Type 3345.24 1 F Full Term [id number] Primary Alex Calculation Initial Alex Date Initial [...]
[2025-03-08] MEDS: LACTATED RINGERS 1,000 ML 30 ML IV CONT ×3 (06:44→12:41)
[2025-03-08] MEDS: TRANEXAMIC ACID 1,000MG/ISO100 1,000 MG/100 ML BAG 200 MG IVPB (06:50)
--- NOTE | 2025-03-08 06:54 | WPDHPUPDATE1 ---
History and Physical Update Update Date/Time: 03/08/25 06:54 History and Physical has been reviewed, including an updated exam of the patient. There are NO changes in the patient's condition. Risks, benefits, and alternatives have been discussed and questions answered. Patient agrees to proceed with procedure.
--- NOTE | 2025-03-08 06:58 | WPDANESEPPF ---
Anes - Initial Pre Proc Eval Procedure: Operation Date: 03/08/25 07:30 Proposed Procedures p Bilateral Breast Augmentation, - Drew Banks MD s Abdominoplasty with Liposuction - Drew Banks MD Date/Time: 03/08/25 06:58 Surgeon: Drew Banks MD Pre Op Diagnosis: micromastia, skin laxity Patient Data Age: 59 Gender: F Height: 1.57 m Weight: 55.4 kg Last Vital Signs Temp 98.0 F 03/08/25 06:30 Pulse 82 03/08/25 06:30 Resp 18 03/08/25 06:30 BP 154/92 H 03/08/25 06:30 Pulse Ox 100 03/08/25 06:30 O2 Del Method Room Air 03/08/25 06:30 Allergies Allergy/AdvReac Type Severity Reaction Status Date / Time azithromycin Allergy Intermediate Hives Verified 03/08/25 06:10 latex Allergy Intermediate Rash Verified 03/08/25 06:10 Home Medications ?Medication ?Instructions ?Recorded ?Confirmed ?Type estradiol cypionate 5 mg/mL 1.5 mg IM WEEKLY 12/18/21 03/08/25 History intramuscular oil progesterone micronized 100 mg 100 mg vaginal EVERY OTHER DAY 12/18/21 03/08/25 History vaginal insert testosterone cypionate 100 mg/mL 50 mg IM WEEKLY 12/18/21 03/08/25 History intramuscular oil calcium 500 mg tablet 500 mg PO DAILY 03/02/25 03/08/25 History compounded thyroid medication 1 cap PO DAILY 03/02/25 03/08/25 History omega 4-hts-vkh-fish oil 1,200 mg 1 cap PO DAILY 03/02/25 03/08/25 History (144 mg-216 mg) capsule (Fish Oil) potassium 99 mg tablet 99 mg PO DAILY 03/02/25 03/08/25 History vitamin E 268 mg (400 unit) capsule 268 mg PO DAILY 03/02/25 03/08/25 History Laboratory Tests 03/08/25 06:28 Cotinine Negative Patient hx anesthesia problems: post op nausea/vomiting Family hx anesthesia problems: none Results Review: All pre-operative results and documents have been reviewed as part of the pre-operative evaluation. [facility], [facility] Past Medical History Medical History Thyroid disease Onychomycosis ADD (attention deficit disorder) FHx: colon cancer Surgical History Surgical History No pertinent past surgical history Family History Family History Father Family history of cardiovascular disease Carcinoma of colon Sibling Family history of cardiovascular disease Social History Social History Years smoked: 11 Smoking status: Former smoker Tobacco type: cigarettes Second hand tobacco smoke exposure: No Smoking end date: 03/02/95 Alcohol intake: current Drinks per week: 2 Substance use: never Substance use type: does not use Living arrangements: with family Occupation/Education: occupation Gender identity (if verbalized by the patient): Female Spiritual care concerns: No Anes - Eval Final PreProcedure Day of Procedure 03/08/25 06:58 Patient weight: normal Lungs: normal air movement Airway: Mallampati scale class II Neurological: alert and oriented Last oral intake: >/= 8 hours ASA classification: I Emergent: no Anesthetic plan: proceed Anesthesia type and monitoring: general ETT and standard monitoring Results Review: All pre-operative results and documents have been reviewed as part of the pre-operative evaluation. Pt very active w cardio/wts 6 x weekly, no cp or sob. Informed Consent: The patient's anesthetic plan and its attendant risks and benefits were discussed with the patient/family/POA. Questions were solicited and answers provided to the satisfaction of the patient/family/POA.
--- NOTE | 2025-03-08 07:18 | P.OP_ITS ---
Procedure Note - Detailed Date of Procedure 03/08/25 Pre-op Diagnosis micromastia, skin laxity Post-op Diagnosis Same Procedure Performed 1. Bilateral augmentation mammaplasty 2. Abdominoplasty with suction lipectomy Surgeon Drew Banks MD Anesthesia General Findings Bilateral Trini Friend SoftTouch 300cc Subfascial Right: REF# [id number] SN [id number] Left: REF# [id number] SN [id number] Tissue removed: 263 grams Lipoaspirate 1,250 cc Description of Procedure They are here today for the above procedures. Previously and again today the risks, benefits, alternatives were discussed in extensive detail. I wanted them to be very realistic about the risks involved as well as expectations. We discussed aftercare and what to monitor for. I was very upfront about the risks of wound breakdown leading to loss of skin, open wounds, and need for additional procedures with permanent abdominal deformity. We discussed DVT/PE risks and management. Made sure answered all of their questions to their satisfaction today and consent was obtained. They were marked in the preoperative holding area with their verification. The patient was taken to the operating room. Anesthesia was provided by anesthesiology. A Hall catheter was started. Posterior Placed prone on the operating room table with care taken to protect from injury. Prepped and draped in a standard sterile fashion. A surgical time-out was taken. Stab incisions were made and tumescent solution was infiltrated. Once adequate time was allowed for hemostasis a 5mm basket and 4mm niko cannula were utilized to complete suction lipectomy based on S.A.F.E. technique in multiple planes and passes. Suction lipectomy continued to result based on pre-operative planning, intra-operative observation, and rolling pinch test which were in full agreement. Patient was then placed supine with care taken to protect from injury. Breast 1% lidocaine and 0.25% Marcaine with epinephrine was used anesthetize as a field block. She was prepped and draped in a standard sterile fashion. Tegaderm nipple Richter were placed. A 15 blade used to make an incision along the inframammary fold. Dissection was continued at 45 degree angle until the chest wall as identified. I elevated a subfascial pocket in the appropriate dimensions based on our preoperative planning for the implant. I then copiously irrigated with saline solution and verified a strict hemostasis. Next the use a triple antibiotic and Betadine containing solution to irrigate the pocket. I washed my gloves with the triple antibiotic and Betadine solution. We washed the implant immediately upon opening it with this solution and only opened it when we needed it. I used implant funnel and no-touch technique. The implant was introduced into the pocket using the funnel. Having verified positioning of the implant this was closed using 2-0 PDS followed by 3-0 Monocryl in a running subcuticular 4-0 Monocryl followed by tissue glue. Abdomen I placed the patient in a flexed position to verify the upper and lower markings would reach. I then placed supine. A thorough abdominal examination was completed. Stab incisions were made and tumescent solution infiltrated. Stab incisions were made and tumescent solution was infiltrated. Once adequate time was allowed for hemostasis a 5mm basket and 4mm niko cannula were util ized to complete suction lipectomy based on S.A.F.E. technique in multiple planes and passes. Suction lipectomy continued to result based on pre-operative planning, intra-operative observation, and rolling pinch test which were in full agreement. A 10 blade was used to make the upper incision. I continued dissection down to the level of fascia. Elevated just what was necessary for repair of the diastasis elevating the umbilicus to float the umbilics. I then again flexed the bed to verify the upper skin flap would reach the lower markings without tension. Once verified I placed her supine once again and a 10 blade used to make the lower incision. The intervening tissue was removed. A 2 mm blunt cannula with 0.5% bupivacaine was injected deep to the fascia bilaterally. I plicated the diastasis recti using 0 PDO Stratafix barbed suture. This was in 2 separate layers using 2 separate sutures as well. I also repaired lateral to the rectus using two layers of 0 PDO Stratafix. After the patient was flexed (below) plicated the fascia with 0 PDO Stratafix in two separate layers. The patient was flexed and starting from superior to inferior began plication using 2-0 Vicryl to obliterate all space in a standard progressive tension fashion. At the umbilicus I secured this to the fascia with 2-0 PDS. I continued the remainder of the plication using 2-0 Vicryl until I reached my lower planned scar line. I trimmed any excess skin of the upper flap making sure this was a tension-free closure. 15 Tomas drain was placed. I then approximated using a 3 point suture with 2-0 Vicryl followed by 2-0 PDO Stratafix, 3-0 Stratafix ,running subcuticular 4-0 Monocryl, and tissue glue. Fluffs, abdominal binder, and surgical bra were placed. The patient was transferred to the bed in a flexed position. [place] and taken to the PACU without difficulty. All instrument and sponge counts were correct at the end of the case. Estimated Blood Loss 50 Drains Yes (15 Tomas) Packing No Pathology None sent Complications No immediate complications Condition Stable Disposition PACU
[2025-03-08] MEDS: LACTATED RINGERS IRRIG 1,000 ML, LIDOCAINE 1% LOCAL INJ 50 ML, EPINEPHrine HCL INJ 1 MG... INFILTRATE (07:34)
[2025-03-08] MEDS: LIDO 1%/EPINEPHRINE 1:100,000 50 ML VIAL 30 ML INFILTRATE (07:34)
[2025-03-08] MEDS: BUPIVACAINE/EPINEPHRINE 0.5% 50 ML VIAL 60 ML INFILTRATE (07:34)
[2025-03-08] MEDS: NACL 0.9% IRRIG POUR BOTTLE 900 ML, GENTAMICIN SULFATE INJ 160 MG, ceFAZolin 2 GM, POVI... IRRIGATION (07:34)
[2025-03-08] MEDS: ceFAZolin 2 GM in SODIUM CHLORIDE 0.9% IV 50 ML 100 ML IVPB (07:50)
[2025-03-08] MEDS: fentaNYL CITRATE INJ (*CRX) 100 MCG/2 ML VIAL 25 MCG IV PUSH ×8 (13:10→14:00)
[2025-03-08] MEDS: ONDANSETRON INJ 4 MG/2 ML VIAL IV PUSH (14:29)
[2025-03-08] MEDS: oxyCODONE HCL (*CRX) 5 MG TAB IR PO (15:16)
== END 2025-03-08 15:50 | disposition home or self-care (01) ==
PROVIDERS: PCP Family Medicine; Visit Provider Surgery Plastic and Reconstructive Surgery
PROC: (CPT 19325; principal; 2025-03-08 07:30)
PROC: (CPT 19325; 2025-03-08 07:30)
DX: Z41.1 Encounter for cosmetic surgery (principal); L57.4 Cutis laxa senilis; N64.82 Hypoplasia of breast; Z79.891 Long term (current) use of opiate analgesic; E07.9 Disorder of thyroid, unspecified; F98.8 Other specified behavioral and emotional disorders with onset usually occurring in childhood and adolescence; Z87.891 Personal history of nicotine dependence; Z80.0 Family history of malignant neoplasm of digestive organs; Z82.49 Family history of ischemic heart disease and other diseases of the circulatory system
CPT/HCPCS: 19325; 15877; 15830; 15847; 80307; J0690; A9270; J0166; J1100; J1171; J1200; J1580; J2003; J2004; J2250; J2405; J2704; J3010; J7120